=== PATIENT | male | born 1950 | race Caucasian/White ===

== ENCOUNTER 2019-05-10 14:29 | Emergency (ER) | payer OTHER, MEDICARE, SELFPAY ==
[2019-05-10 14:31] VITALS: BP 118/74; PULSE 79; RESP 16; TEMP 37.2; O2SAT 89; BMI 31.2
[2019-05-10 14:35] VITALS: O2SAT 92
--- NOTE | 2019-05-10 14:51 | RAD_ITS ---
STUDY: X-RAY CHEST REASON FOR EXAM: Male, 69 years old. TECHNIQUE: COMPARISON: None. FINDINGS: The heart is not enlarged. There is elevation of the right hemidiaphragm. Both lung rivera and costophrenic angles are clear minimal linear atelectasis in the left base. The trachea is in the midline. There is a oval opacity superimposing the transverse process of T1 could represent superimposing foreign body. RAD/Chest 1 View (Portable) IMPRESSION: Minimal atelectatic changes in the left base The study is otherwise negative. . Electronically Signed: Gustavo Marrero, at 16:28 EDT Tel , Service support ,
--- NOTE | 2019-05-10 14:52 | CT_ITS ---
STUDY: CT ABDOMEN AND PELVIS WITH CONTRAST REASON FOR EXAM: Male, 69 years old. RADIATION DOSAGE (If Supplied By Facility): CTDIvol = ( ) mGy, DLP = ( 1382.92 ) mGycm TECHNIQUE: Transaxial images were obtained from the dome of the diaphragm to the symphysis pubis without oral contrast. 100ml IV Isovue 300 was administered. Sagittal and coronal images were reconstructed. Individualized dose optimization techniques were used for this CT. COMPARISON: None. FINDINGS: The visualized lung bases are unremarkable. The visualized portions of the heart are within normal limits. There is small sliding hiatal hernia. Normal liver. Normal gallbladder and extrahepatic biliary system. Normal spleen. 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 Normal pancreas. Normal bilateral adrenal glands. The right kidney reveals tiny nonobstructing stone within the mid calyx with a small cortical cyst posterior aspect . The left kidney is unremarkable. Normal left kidney. No hydronephrosis Normal visualized stomach. Normal small intestine. The large bowel revealed several diverticula in the sigmoid and descending colon without diverticulitis. The appendix is intact. Normal abdominal aorta. Normal inferior vena cava. Normal retroperitoneum. Normal urinary bladder. Normal abdominal wall. Hypertrophic changes in the lumbar spine with what appears to be grade 5 L spondylolisthesis of L5 on S1 that is fixed by hardware CT/Abdomen/Pelvis WITH Contrast IMPRESSION: Small nonobstructive calculus midportion of the right kidney Colonic diverticulosis without the Chilaiditi Syndrome? Electronically Signed: Gustavo Marrero, at 16:24 EDT Tel , Service support ,
--- NOTE | 2019-05-10 14:53 | RAD_ITS ---
STUDY: X-RAY - LEFT FEMUR REASON FOR STUDY: Male, 69 years old. TECHNIQUE: view(s) of the femur. COMPARISON: None. FINDINGS: Normal visualized femur. Normal visualized soft tissue structure. RAD/Femur Min 2 Views IMPRESSION: Normal x-ray examination of the femur. Electronically Signed: Gustavo Marrero, at 16:29 EDT Tel , Service support ,
[2019-05-10] MEDS: morphine 8 MG/ML Syringe IV (15:10)
[2019-05-10] MEDS: Ondansetron 4 MG/2 ML Vial IV (15:10)
[2019-05-10 15:19] LABS: Absolute Lymphocyte Count 1.08 X10^3/ul (0.83-4.51); Basophil# 0.01 X10^3/uL; Basophil% 0.1 % (0-1); Hematocrit 43.6 % (40-54); Hemoglobin 14.8 g/dl (13.0-16.5); Lymphocyte # 1.08 X10^3/ul (4.0); Lymphocyte % 14.4 % (19-41); Mean Corp Hgb Conc 33.9 g/gl (32-36); Mean Corpuscular Hgb 31.4 pg (27.0-32.0); Mean Corpuscular Volume 92.6 fL (80-94); Mean Platelet Vol. 9.7 fl (6.2-12.0); Monocyte# 0.44 X10^3/uL; Monocyte% 5.9 % (0-10); Neutrophil # 5.95 X10^3/uL (2.7-7.7); Neutrophil % 79.3 % (47-70); POSITIVE COUNT NO; POSITIVE DIFFERENTIAL NO; POSITIVE MORPHOLOGY NO; Platelet Count 175 K/mm3 (150-450); RBC Distribution Width CV 13.3 % (11.6-14.6); RBC Distribution Width SD 44.9 fl (35.1-43.9); Red Blood Count 4.71 M/mm3 (4.6-6.2); White Blood Count 7.5 K/mm3 (4.4-11.0)
--- NOTE | 2019-05-10 15:20 | ED.VIS.FALL ---
History of Present Illness Chief Complaint: Fall Informant: Patient, Significant Other Occurred: Today Mechanism/Context: Slip - Fell from ladder 10 feet height Fall from Height (ft): 10 Location: Anterior right ribs, left femur and right upper quadrant Quality of Pain: Sharp, Dull, Throbbing Current Severity: Moderate Maximum Severity: Severe Worsened by: Breathing and movement and weightbearing Relieved by: Nothing Associated Symptoms: Inability to ambulate. Negative for: Parasthesias, Weakness, Loss of function, Loss of consciousness, Amnesia Narrative: And left femur pain when he bears weight. He hit his face against a armstrong. He denies head trauma. Denies loss of conscious. Is not amnestic. He denies neck pain. He denies paresthesia or anesthesia presently the time of the fall. He states it hurts to breathe but denies shortness of breath. He also complains of right flank pain. He has not urinated since incident. Incident occurred 1 hour prior to presentation. drove him to the emergency department. Tetanus was 1 year ago. Tetanus Immunization: <5 years Prior similar symptoms: No Recent Illness/Hospitalization: No Past Medical History - Allergies and Home Meds Allergies/Adverse Reactions: Allergies No Known Allergies Allergy (Verified 05/10/19 14:31) Primary Care Physician: [facility] [Primary Care Provider] - Prior records reviewed: Yes Lives: Spouse/ Significant Other Smoking Status: Never smoker Drugs: None Review of Systems General: Denies: Chills, Fever, Sweats Eyes: Denies: Visual changes - bilaterally, Diplopia ENT: Denies: Rhinorrhea, Sore throat Cardiovascular: Reports: Chest pain - Right anterior ribs over right third, fourth, fifth and sixth rib. Denies: Palpitations Respiratory: Reports: Dyspnea. Denies: Cough, Dyspnea on exertion Gastrointestinal: Reports: Abdominal pain - Right upper quadrant. Denies: Nausea, Vomiting, Diarrhea, Melena, Hematochezia Genitourinary: Denies: Dysuria, Hematuria, Frequency Musculoskeletal: Denies: Back pain, Extremity Pain Skin: Denies: Rash, Wounds Neurological: Denies: Headache, Weakness, Numbness Hematologic: Denies: Easy bruising, Easy bleeding Physical Exam Vital Signs/Narrative: Vital Signs Temp Pulse Resp BP Pulse Ox 05/10/19 14:35 92 05/10/19 14:31 99.0 F 79 16 118/74 89 Inital Vital Signs reviewed: Yes General: Well nourished, Well developed Head: Normocephalic, Trauma - Facial abrasions Eyes: Perrl, EOMI. Negative for: Pale conjunctiva, Scleral icterus, - - No subconjunctival hemorrhage noted ENT: TM's clear, No hemotympanum or drainage, No trauma. Negative for: Otorrhea, Nasal trauma, Nasal septal hematoma Neck: Nontender, Full ROM. Negative for: Spinal Tenderness, Paraspinal Tenderness Cardiovascular: Regular rate, Regular rhythm, No murmurs. Negative for: Normal S1, Normal S2 Respiratory: No distress, CTA bilaterally, Chest nontender Abdomen: Nondistended, No masses, Tender, Guarding - . Right upper and left upper quadrant, Hypoactive bowel sounds. Negative for: Soft, Nontender, Normal bowel sounds, Hyperactive bowel sounds, Hepatomegaly Rectal: Deferred Back: CVA Tenderness - Right, Paraspinal Tenderness. Negative for: Nontender, CVA Tenderness - Left, Spinal Tenderness Skin: Normal color, No rash, Trauma - Facial abrasions. Negative for: Cyanosis, Diaphoresis, Jaundice Neurological: Alert, Oriented x3, Cranial nerves II-XII grossly intact, Normal Strength, Normal Sensation, Normal DTR - There is no clonus or Babinski sign. Psychological: Normal affect, Normal Mood Diagnostic/Tx/Re-eval Chest X-Ray - ED: 1 View, Read by ED Physician, Normal, Heart, Lungs, Mediastinum, Bony Structures, - - Limited inspiratory volume. No obvious rib fracture. No obvious pneumothorax or hemothorax. CT of the abdomen was reviewed by me. There is no obvious hepatic or splenic injury. The kidneys appear normal. There is no evidence of hemo-or pneumoperitoneum. No obvious dorsal or lumbar fracture noted. Two-view x-ray of the femur interpreted by me is negative for fracture. Awaiting formal read of CT by radiologist. Impressions Abdomen/Pelvis CT 05/10/19 14:52 IMPRESSION: Small nonobstructive calculus midportion of the right kidney Colonic diverticulosis without the Chilaiditi Syndrome? Electronically Signed: Gustavo Marrero, at 16:24 EDT Tel , Service support , 05/10/19 14:51 Chest 1 View (Portable) [RAD] Stat 05/10/19 14:52 Abdomen/Pelvis WITH Contrast [CT] Stat 05/10/19 14:53 Femur Min 2 Views [RAD] Stat Laboratory Results 05/10/19 05/10/19 15:00 15:00 WBC 7.5 RBC 4.71 Hgb 14.8 Hct 43.6 MCV 92.6 MCH 31.4 MCHC 33.9 RDW 13.3 RDW Differential 44.9 H Plt Count 175 MPV 9.7 Immature Gran % (Auto) 0.300 Neut % (Auto) 79.3 H Lymph % (Auto) 14.4 L Heard % (Auto) 5.9 Eos % (Auto) 0.0 Baso % (Auto) 0.1 Absolute Neuts (auto) 6.0 Absolute Lymphs (auto) 1.08 Total Counted Not Reportable Sodium 138 Potassium 4.1 Chloride 104 Carbon Dioxide 30.0 Anion Gap 4 L BUN 18 Creatinine 1.09 Estim Creat Clear Calc 63.06 Est GFR (MDRD) Af Amer 86 Est GFR (MDRD) Non-Af 71 BUN/Creatinine Ratio 16.5 Glucose 110 H Calcium 9.2 - Medical Decision Making Because of the amount of tenderness the right upper quadrant CT of the abdomen was obtained to evaluate for hepatic and splenic injury as well as renal injury since there is flank pain. Chest x-ray was obtained to assess for upper rib fractures. Because patient complains of left femur pain distal third with weightbearing will obtain x-ray to evaluate for fracture. ED Disposition - Plan for ED Patient: Disposition: Home or Assisted Living Diagnosis: Blunt abdominal trauma, Contusion of chest wall with intact skin, Facial abrasion, Musculoskeletal thigh pain Instructions: Chest Wall Contusion, ABDOMINAL TRAUMA, Blunt (benign), CONTUSION, Lower Extremity, Abrasion Prescriptions: Oxycodone HCl/Acetaminophen [Percocet 5/325] 1 tab PO Q6H PRN PRN 5 Days #20 tab PRN Reason: Pain Prescription Printed [facility]errals[facility] [Primary Care Provider] - 1 Week if not improving
[2019-05-10 15:23] LABS: Anion Gap 4 (5-15); BUN 18 mg/dL (7-18); BUN/Creat Ratio 16.5 RATIO (10-20); Calcium,Total 9.2 mg/dL (8.5-10.1); Chloride 104 mmol/L (98-107); Creatinine, Serum 1.09 mg/dL (0.70-1.30); EST Glomerular Filtration Rate 71 mL/min (>60); Est Glom Filt Rate - Afr Amer 86 mL/min (>60); Estimated Creatinine Clearance 63.06 ml/min; Glucose 110 mg/dL (74-106); Potassium 4.1 mmol/L (3.5-5.1); Sodium Level 138 mmol/L (136-145)
[2019-05-10 15:57] VITALS: BP 123/87; PULSE 87; RESP 16; O2SAT 97
[2019-05-10] MEDS: HYDROmorphone 0.5 MG/0.5 ML SYRINGE IV (16:42)
[2019-05-10 16:43] VITALS: BP 111/73; PULSE 85; RESP 12; O2SAT 94
[2019-05-10 17:27] VITALS: BP 117/76; PULSE 88; RESP 16; O2SAT 94
== END 2019-05-10 17:28 | disposition home or self-care (01) ==
PROVIDERS: Emergency Provider Emergency Medicine
DX: S39.91XA Unspecified injury of abdomen, initial encounter (principal); S20.211A Contusion of right front wall of thorax, initial encounter; S00.81XA Abrasion of other part of head, initial encounter; M79.652 Pain in left thigh; W11.XXXA Fall on and from ladder, initial encounter; Y93.9 Activity, unspecified; Y92.9 Unspecified place or not applicable; Y99.9 Unspecified external cause status
CPT/HCPCS: 71045; 73552; 74177; 80048; 85025; 96361; 96374; 96375; 99283; Q9967; A4216; J2405

== ENCOUNTER 2022-01-05 10:53 | Emergency (ER) | payer OTHER, SELFPAY ==
[2022-01-05 10:54] VITALS: BP 132/112; PULSE 77; RESP 16; TEMP 36.8; O2SAT 96; BMI 30.2
--- NOTE | 2022-01-05 11:26 | CT_ITS ---
STUDY: CT BRAIN WITHOUT CONTRAST REASON FOR EXAM: Male, 71 years old. Fall on Tuesday, dizziness RADIATION DOSAGE (If Supplied By Facility): CTDIvol = ( 44.99 ) mGy, DLP = ( 796.11 ) mGycm TECHNIQUE: Transaxial CT imaging of the brain was performed without administration of intravenous contrast material. Individualized dose optimization techniques were used for this CT. COMPARISON: No relevant priors. FINDINGS: Normal soft tissue structures. Normal calvarium. There is mild cerebral atrophy with widening of the extra-axial spaces and ventricular dilatation. There are areas of decreased attenuation within the white matter tracts of the supratentorial brain, consistent with microvascular disease changes. There are small punctate calcifications of the basal ganglia which are seen in the aging brain as a normal variant. Normal brainstem. Normal cerebellum. There is no intracranial hemorrhage. There are no findings of an acute ischemic infarction. Normal visualized paranasal sinuses. CT/Brain/Head without Contrast IMPRESSION: 1. No acute intracranial hemorrhage or mass effect. Electronically Signed: Messi Huitron MD (Brooks) at 11:47 EST Reading Location ID and State: [facility] / [place] , Service support ,
--- NOTE | 2022-01-05 11:26 | RAD_ITS ---
STUDY: X-RAY - RIGHT TIBIA AND FIBULA REASON FOR EXAM: Male, 71 years old. Fall on Tuesday, lower leg pain TECHNIQUE: 2 view(s) of the tibia and fibula were obtained. COMPARISON: None. FINDINGS: Normal visualized tibia. Normal visualized fibula. The soft tissue structures are unremarkable. RAD/Tibia & Fibula 2 Views IMPRESSION: Normal x-ray examination of the tibia and fibula. Electronically Signed: Messi Huitron MD (Brooks) at 11:48 EST ,
--- NOTE | 2022-01-05 11:27 | EDS_ITS ---
HPI History of Present Illness Chief Complaint: Fall Informant: patient and spouse/S.O. Narrative Narrative: 71-year-old male states that he was walking his dog in the dark on Tuesday evening. He slipped and fell on the ice striking the back of his head on the ground. No loss of consciousness. He notes slight discomfort to the proximal lateral right leg. On Tuesday morning he went to roll over to turn off the alarm and states that his head got very heavy. He states that he felt like his head was spinning really fast. But it is not vertigo because he has had vertigo in the past and this did not seem like it. Few minutes went by and he rolled over to his left side again with the same symptoms. This morning he felt a little lightheaded and some discomfort in his occiput but did not have the head heaviness that he had on Tuesday. He called his doctor who recommended he come to emergency [facility] Medical History Acute Crohn's disease Cholecystectomy planned Allergy/AdvReac Type Severity Reaction Status Date / Time No Known Allergies Allergy Verified 01/05/22 10:56 Surgical History History of back surgery Social History (Updated 01/05/22 @ 11:[address] Jose Alberto Bojorquez DO) service: Yes current gender identity: male Smoking Status: Never smoker ROS ROS ED Constitutional Constitutional ED: Denies chills or weight loss Eyes Eyes: Denies change in vision or diplopia ENT ENT ED: Denies ear pain, rhinorrhea or sore throat Cardiovascular Cardiovascular: Denies chest pain, orthopnea, palpitations or racing heartbeat Respiratory/Chest Respiratory/Chest: Denies cough, dyspnea or orthopnea Gastrointestinal Gastrointestinal: Denies abdominal pain, diarrhea, nausea or vomiting Genitourinary Genitourinary ED: Denies dysuria, hematuria or urinary frequency Musculoskeletal Musculoskeletal: Reports other Details: See HPI ; Denies arthralgias or myalgias Integumentary Denies abscess or rash Neurologic Neurologic: Reports headache(s) and other Details: See HPI ; Denies weakness Psychiatric Psychiatric: Denies anxiety, depression, suicidal ideation or suicidal thoughts Endocrine Endocrinology: Denies polydipsia, polyphagia or polyuria Allergic/Immunologic Allergic/Immunologic ED: Denies mouth swelling, tongue swelling or urticaria EXAM Physical Exam Const Vital Signs: 01/05/22 10:54 01/05/22 11:07 Temperature 98.2 F Temperature Source Temporal Pulse Rate 77 Respiratory Rate 16 Respiratory Effort Normal Respiratory Depth Normal Respiratory Pattern Normal Blood Pressure 132/112 H Blood Pressure Mean 118 Pulse Ox 96 Oxygen Delivery Method Room Air Room Air Positive well nourished and well developed General Appearance ED: well developed HEENT Reports normocephalic, head/scalp atraumatic, TM's clear and moist mucous membranes Negative for trauma Tympanic Membrane ED: Yes TM's clear Eyes PERRL and EOMs intact bilaterally Eyes Narrative: Negative raccoon eyes no levi sign Neck no lymphadenopathy, supple and no JVD Resp normal respiratory effort and clear to auscultation bilaterally Cardio regular rate, regular rhythm and no murmurs GI normal to inspection, nondistended, normoactive bowel sounds and non-tender Palpation: soft Back/Spine no CVA tenderness and normal ROM Extremity Extremity Narrative: Tender palpation of the fibular head General Extremety ED: Negative for edema General Extremity: Negative for edema Neuro oriented x3 and CN's II-XII intact bilaterally Sensorium / Orientation: alert Motor Exam: strength 5/5 throughout Psych mental status grossly normal Mood & Affect: Negative for depressed or tearful Skin no rashes or lesions noted and no wounds MDM MDM MDM Narrative Medical decision making narrative: CT the brain shows no intracranial hemorrhage or fracture. My clinical impression of the tibia and fibula is no acute fracture. Patient will be discharged home with supportive care return if worsening or concerns Radiography Diagnostic Testing: Clinical Impression(s) from Imaging Studies Brain CT 01/05/22 11:26 IMPRESSION: 1. No acute intracranial hemorrhage or mass effect. Electronically Signed: Messi Huitron MD (Brooks) at 11:47 EST , Tibia/Fibula X-Ray 01/05/22 11:26 IMPRESSION: Normal x-ray examination of the tibia and fibula. Electronically Signed: Messi Huitron MD (Brooks) at 11:48 EST Reading Location ID and State: [facility] / [place] , Service support , Discharge Plan Triage Chief Complaint: Fall ED Provider: Jose Alberto Bojorquez Dx/Rx/DC Orders Clinical Impression: Contusion of left leg, Head injury Instructions: ED Head Injury (Adult) [facility] Care Provider[facility]errals[facility] [[facility] - 1 Week if not improving Disposition Disposition: Home, Self Care
--- NOTE | 2022-01-06 13:00 | CM.ED ---
TASHI WHYTE ED follow-up: Date of ER visit: 01/05/2022 Presenting ER complaint: Fall RN ISABELL placed call to patient's telephone number listed on demographics with no answer. Voice message with call back information left requesting return call if any questions, needs or concerns. TASHI Clarke CM
== END 2022-01-05 23:59 | disposition home or self-care (01) ==
PROVIDERS: Emergency Provider Emergency Medicine; Visit Provider Emergency Medicine
DX: S09.90XA Unspecified injury of head, initial encounter (principal); S80.12XA Contusion of left lower leg, initial encounter; W00.9XXA Unspecified fall due to ice and snow, initial encounter; Y93.K1 Activity, walking an animal
CPT/HCPCS: 70450; 73590; 99282

== ENCOUNTER 2022-01-11 15:14 | Outpatient (CLI) | payer OTHER, SELFPAY ==
--- NOTE | 2022-01-11 | COLBX_PTH ---
PATIENT: PIETRO STEWART LOC: [facility] U#:[id number] AGE/SX: 71/M ROOM: RE01/11/[address]: Dr. Eduardo Singh MD : 1950 BED: DIS: 01/11/2022 SPEC #: [id number] RECD: 01/11/22 15:05 STATUS: JIMENEZ FELISHA #: [id number] FATOU: 01/11/22 00:[address]: Eduardo Singh DEPT: SURGICAL PATHOLOGY RECD BY: Wander Baer ENTERED: 01/12/22 10:48 SP TYPE: COLON BX OTHR DR: [facility] Tissues: A - Right colon B - Left colon Procedures: Surgery Specimen Level IV HEADER OPERATION: Colonoscopy with biopsy PRE-OP DIAGNOSIS: History of Crohn?s / diarrhea TISSUE SUBMITTED: A ? Right colon biopsy, rule out microscopic colitis/Crohn?s, B ? Left colon biopsy, rule out microscopic colitis/Crohn?s MICROSCOPIC DIAGNOSIS A. Right colon, biopsy: No pathologic change. No evidence of colitis. B. Left colon, biopsy: Melanosis coli. AM:dm 01/13/2022 MICROSCOPIC DESCRIPTION Slides are reviewed. GROSS DESCRIPTION A - Received in fixative is one container labeled with the patient's name and designated right colon. The specimen consists of multiple irregular fragments of light palomo soft tissue that in aggregate measure 1 x 0.5 x 0.1 cm. The specimen is totally submitted in one cassette. B - Received in fixative is one container labeled with the patient's name and designated left colon. The specimen consists of multiple irregular fragments of light palomo soft tissue that in aggregate measure 1 x 0.5 x 0.1 cm. The specimen is totally submitted in one cassette. / SJ:dm 01/12/2022 TC:5 CPT: 84308 x2
== END 2022-01-11 23:59 | disposition home or self-care (01) ==
LOC: LABSPEC 15:17
PROVIDERS: Visit Provider Internal Medicine Gastroenterology
DX: R19.7 Diarrhea, unspecified (principal); Z87.19 Personal history of other diseases of the digestive system; K63.89 Other specified diseases of intestine
CPT/HCPCS: 88305

== ENCOUNTER 2024-01-31 12:47 | Observation (INO) | payer OTHER, SELFPAY ==
[2024-01-31] VITALS (25 sets, daily range): BP systolic 112–139; BP diastolic 55–89; PULSE 61–75; RESP 10–18; TEMP 36.2–36.4; O2SAT 88–99; BMI 28.5; BMI 28.3
--- NOTE | 2024-01-31 13:34 | CT_ITS ---
STUDY: CT BRAIN WITHOUT CONTRAST REASON FOR EXAM: Male, 73 years old. Dizziness RADIATION DOSAGE (If Supplied By Facility): CTDIvol = ( 47.06 ) mGy, DLP = ( 1745.36 ) mGycm TECHNIQUE: Transaxial CT imaging of the brain was performed without administration of intravenous contrast material. Individualized dose optimization techniques were used for this CT. COMPARISON: Comparison is made with prior study dated January 05, 2022. FINDINGS: Normal soft tissue structures. Normal calvarium. There is mild cerebral atrophy with widening of the extra-axial spaces and ventricular dilatation. Normal white matter tracts of the cerebral hemispheres. There are small punctate calcifications of the basal ganglia which are seen in the aging brain as a normal variant. Normal brainstem. Normal cerebellum. There is no intracranial hemorrhage. There are no findings of an acute ischemic infarction. Atherosclerotic calcification of the cavernous portions of the internal carotid arteries bilaterally. Mucosal thickening at the base of the left maxillary sinus. CT/Brain/Head without Contrast IMPRESSION: Chronic involutional changes of the brain. Electronically Signed: Jamal Lyn MD at 14:28 EDT ,
--- NOTE | 2024-01-31 13:34 | EKG12_ITS ---
Test Reason : SYNCOPE Blood Pressure : / mmHG Vent. Rate : 063 BPM Atrial Rate : 063 BPM P-R Int : 188 ms QRS Dur : 092 ms QT Int : 418 ms P-R-T Axes : 031 005 047 degrees QTc Int : 427 ms Normal sinus rhythm Normal Confirmed by Toñito Kang ([id number]), editor in chief FLOWER MALIK ([id number]) on 02/02/2024 10:58:06 AM Referred By: [facility] Confirmed By:Toñito Kang
--- NOTE | 2024-01-31 13:35 | EX.ED.DYSGE1 ---
HPI History of Present Illness Chief Complaint: Dizziness Detail of Chief Complaint: Dizziness Informant: patient Narrative Narrative: Patient presents with dizziness and lightheadedness that started 4 days ago. Symptoms worse with being up and moving. At rest really does not notice it much. He does have history of vertigo but this feels different. There is no spinning sensation. Just feels a little off balance. [facility] some [facility] and they were to evaluate that. Patient apparently had a CT scan that showed some sort of abnormality on his liver recently and then had an ultrasound that showed a shadow of some sort on the liver but they are not sure what it is. Patient denies weight loss. Has had no fever. He did have a cold that resolved about a week ago. He denies chest pain or shortness of breath. He denies vomiting or diarrhea. He denies urinary symptoms. [facility] Medical History Acute Crohn's disease Cholecystectomy planned Allergy/AdvReac Type Severity Reaction Status Date / Time No Known Allergies Allergy Verified 01/31/24 12:50 Surgical History History of back surgery Social History (Updated 01/05/22 @ 11:[address] Jose Alberto Bojorquez DO) Smoking Status: Never smoker ROS ROS ED Review of Systems ROS Unobtainable: other Constitutional Constitutional ED: Reports lethargy; Denies chills, fever(s), sweats or weight loss Eyes Eyes: Denies blurry vision, change in vision or diplopia ENT ENT ED: Denies rhinorrhea or sore throat Cardiovascular Cardiovascular: Denies chest pain, orthopnea or racing heartbeat Respiratory/Chest Respiratory/Chest: Denies cough, dyspnea, dyspnea on exertion, orthopnea or sputum Gastrointestinal Gastrointestinal: Denies abdominal pain, diarrhea, nausea or vomiting Genitourinary Genitourinary ED: Denies dysuria, hematuria or urinary frequency Musculoskeletal Musculoskeletal: Denies arthralgias, back pain, myalgias or neck pain Integumentary Denies abscess, Abrasions or rash Neurologic Neurologic: Reports other Details: Dizziness ; Denies headache(s) or weakness Psychiatric Psychiatric: Denies anxiety, depression or suicidal thoughts Endocrine Endocrinology: Denies polydipsia, polyphagia or polyuria Hematologic/Lymphatic Hematologic/Lymphatic: Denies easy bleeding, easy bruising or lymphadenopathy Allergic/Immunologic Allergic/Immunologic ED: Denies mouth swelling, tongue swelling or urticaria EXAM Physical Exam Const Vital Signs: 01/31/24 12:48 01/31/24 12:48 01/31/24 13:18 Temperature 97.1 F L 97.1 F L Temperature Source Temporal Temporal Pulse Rate 75 75 Pulse Rate [Lying] Pulse Rate [Standing (for 1 minute prior to obtaining)] Respiratory Rate 16 16 Respiratory Effort Normal Respiratory Pattern Normal Blood Pressure 139/81 H 139/81 H Blood Pressure [Lying] Blood Pressure [Sitting (for 1 minute prior to obtaining)] Blood Pressure [Standing (for 1 minute prior to obtaining)] Blood Pressure Mean 100 100 Blood Pressure Mean [Lying] Blood Pressure Mean [Sitting (for 1 minute prior to obtaining)] Blood Pressure Mean [Standing (for 1 minute prior to obtaining)] Pulse Ox 96 95 Oxygen Delivery Method Room Air Room Air 01/31/24 13:20 01/31/24 14:59 Temperature 97.6 F L Temperature Source Oral Pulse Rate 64 Pulse Rate [Lying] 67 Pulse Rate [Standing (for 1 minute prior to obtaining)] 72 Respiratory Rate 11 L Respiratory Effort Respiratory Pattern Blood Pressure 123/75 H Blood Pressure [Lying] 122/89 H Blood Pressure [Sitting (for 1 minute prior to obtaining)] 119/69 Blood Pressure [Standing (for 1 minute prior to obtaining)] 136/80 H Blood Pressure Mean 91 Blood Pressure Mean [Lying] 100 Blood Pressure Mean [Sitting (for 1 minute prior to obtaining)] 85 Blood Pressure Mean [Standing (for 1 minute prior to obtaining)] 98 Pulse Ox 91 Oxygen Delivery Method Room Air Positive well nourished and well developed General Appearance ED: well developed and NAD HEENT Reports TM's clear and moist mucous membranes normocephalic and atraumatic; Negative for trauma or tenderness Tympanic Membrane ED: Yes TM's clear Eyes PERRL and EOMs intact bilaterally General Eye ED: Negative for pale conjunctiva or scleral icterus Neck no lymphadenopathy, supple and no JVD General: Negative for tenderness Chest Wall inspection of chest normal and palpation of chest normal Chest: Negative for tenderness Resp normal respiratory effort and clear to auscultation bilaterally Effort and Inspection: Negative for respiratory distress or pain with movement Auscultation: Negative for rhonchi, wheezes or diminished lung sounds Cardio regular rate, regular rhythm, S1 normal heart sound, S2 normal heart sound and no murmurs Peripheral Pulses: pulses 2+ throughout GI normal to inspection, nondistended, normoactive bowel sounds, soft to palpation, non-tender, non-distended and no masses Back/Spine no CVA tenderness and no thoracic nor lumbar tenderness Extremity normal to inspection General Extremety ED: Negative for edema General Extremity: Negative for edema Neuro oriented x3, CN's II-XII intact bilaterally, no sensory deficits noted and gait normal Neuro Narrative: Finger-nose and heel agudelo testing within normal limits, negative Romberg, negative for drift, fundi benign Sensorium / Orientation: awake, alert, oriented to person, oriented to place and oriented to time Motor Exam: strength 5/5 throughout and strength abnormal Psych mental status grossly normal Skin no rashes or lesions noted and no wounds MDM MDM MDM Narrative Medical decision making narrative: Patient describes lightheadedness and feeling off balance. Having a hard time walking at times and driving. Symptoms ongoing for about 4 days. This is different than his vertigo that he is experienced in the past. Denies headache. Denies recent illness. IV line established. EKG obtained arrival shows sinus rhythm with ventricular rate of 63 bpm with no acute ST segment changes. Orthostatic vital signs performed were negative. CBC with differential regular 4.4 with hemoglobin 14 and platelet count of 236. Chemistries unremarkable. LFTs were slightly elevated with an AST of 45 and ALT of 151 and alk phos of 219. These are similar to what patient's lab results were recently that they brought with them. Apparently he has had elevated LFTs for months that he is currently [facility] and has had recent CT scan and ultrasound of the upper quadrant. I did obtain a CT scan of the brain without contrast that showed chronic involutional changes. At this point etiology of symptoms unclear. I am concerned about possibly a central cause such as cerebellar stroke. He really does not have nystagmus on exam. And Hallpike maneuver did not elicit any type of vertigo symptoms or nystagmus. Case discussed with hospitalist to evaluate patient for admission. Lab Data Attestation: I reviewed the patient's lab results. Labs: Laboratory Results - last 24 hr 01/31/24 13:28 WBC 4.4 RBC 4.53 L Hgb 14.1 Hct 43.1 MCV 95.1 H MCH 31.1 MCHC 32.7 RDW Std Deviation 45.6 H RDW Coeff of Dee 13.0 Plt Count 236 MPV 9.4 Immature Gran % (Auto) 0.900 Neut % (Auto) 44.5 L Lymph % (Auto) 45.7 H [place] % (Auto) 8.0 Eos % (Auto) 0.0 Baso % (Auto) 0.9 Absolute Neuts (auto) 1.9 L Absolute Lymphs (auto) 1.99 Nucleated RBC % 0 Sodium 140 Potassium 4.0 Chloride 104 Carbon Dioxide 30.0 Anion Gap 6 BUN 14 Creatinine 0.91 Estim Creat Clear Calc 78.00 Est GFR (MDRD) Af Amer 105 Est GFR (MDRD) Non-Af 87 BUN/Creatinine Ratio 15.5 Glucose 118 H Calcium 9.1 Total Bilirubin 0.50 AST 45 H ALT 151 H Alkaline Phosphatase 219 H Troponin I High Sens 4 Total Protein 7.7 Albumin 3.3 Globulin 4.4 H Albumin/Globulin Ratio 0.8 L Radiography Diagnostic Testing: Clinical Impression(s) from Imaging Studies Brain CT 01/31/24 13:34 IMPRESSION: Chronic involutional changes of the brain. Electronically Signed: Jamal Lyn MD at 14:28 EDT , Discharge Plan Triage Chief Complaint: Dizziness ED Provider: Shelly Katz Dx/Rx/DC Orders Clinical Impression: Hx of Crohn's disease, Dizziness, Elevated liver enzymes [facility] [Primary Care Provider] - Disposition Disposition: Acute Care Hospital [facility]
[2024-01-31 13:56] LABS: Absolute Lymphocyte Count 1.99 X10^3/uL (0.83-4.51); Absolute Neutrophil Count 1.9 X10^3/uL (2.0-7.7); Basophil# 0.04 X10^3/uL; Basophil% 0.9 % (0-1); Hematocrit 43.1 % (40-54); Hemoglobin 14.1 g/dL (13.0-16.5); Lymphocyte # 1.99 X10^3/ul (0.83-4.51); Lymphocyte % 45.7 % (19-41); Mean Corp Hgb Conc 32.7 g/dL (32-36); Mean Corpuscular Hgb 31.1 pg (27.0-32.0); Mean Corpuscular Volume 95.1 fL (80-94); Mean Platelet Vol. 9.4 fl (6.2-12.0); Monocyte# 0.35 X10^3/uL; NRBC Flagged by Analyzer 0 % (0-5); Neutrophil # 1.93 X10^3/uL (2.7-7.7); Neutrophil % 44.5 % (47-70); Platelet Count 236 K/mm3 (150-450); RBC Distribution Width SD 45.6 fl (35.1-43.9); Red Blood Count 4.53 M/mm3 (4.6-6.2); White Blood Count 4.4 K/mm3 (4.4-11.0)
[2024-01-31] MEDS: 0.9% Normal Saline (1000mL) 1,000 ML 150 ML IV (13:58)
[2024-01-31 14:13] LABS: ALB/GLOB Ratio 0.8 RATIO (0.9-2.4); AST(SGOT) 45 U/L (15-37); Alanine Aminotransfer ALT/SGPT 151 U/L (16-61); Albumin, Serum 3.3 g/dL (3.2-5.0); Alkaline Phosphatase 219 U/L (45-117); Anion Gap 6 (5-15); BUN 14 mg/dL (7-18); BUN/Creat Ratio 15.5 RATIO (10-20); Calcium,Total 9.1 mg/dL (8.5-10.1); Chloride 104 mmol/L (98-107); Creatinine, Serum 0.91 mg/dL (0.70-1.30); EST Glomerular Filtration Rate 87 mL/min (>60); Est Glom Filt Rate - Afr Amer 105 mL/min (>60); Globulin 4.4 g/dL (2.2-4.2); Glucose 118 mg/dL (74-106); Protein, Total 7.7 g/dL (6.4-8.2); Sodium Level 140 mmol/L (136-145); Troponin-I HS 4 pg/mL (3.0-78.0)
--- NOTE | 2024-01-31 15:26 | HP.PCM.HOS_ITS ---
HPI - General General Date of Admission: 01/31/24 Date of Service: 01/31/24 Chief Complaint: Persistent dizziness HPI Narrative PIETRO STEWART, is a 73 M who presented to [facility] ED on 01/31/2024 with persistent dizziness. Patient seen at bedside in the ED. He was sitting up comfortably in bed, conversing normally, no acute distress. [facility] has a history of vertigo, but his current episode of dizziness is significantly different than past episodes of dizziness. States he will very occasionally have short episodes of dizziness that last for a few minutes and resolve on their own. He was prescribed meclizine at one point but said this caused him to feel lightheaded so he has not taken that for a long time. States he developed dizziness about 4 days ago while at rest. Symptoms felt somewhat similar to his vertigo episodes but the dizziness would not go away. He lives at home with his and has 2 dogs at home as well. States his dizziness is worse with walking and he has been getting help from his dogs and using the mckenzie to help him get around the house. He reports intermittent blurry vision as well which feels slightly improved now compared to the last few days. He initially thought he might have lightheadedness and dizziness secondary to going from sitting to standing but notes that the dizziness has not seemed to follow any particular pattern. Patient has minimal past medical history and has had no recent medication changes. He denies any chest pain, shortness of breath, fevers or chills recently. Denies any recent illnesses. Denies any abdominal pain or nausea/vomiting. Denies any changes in bowel movements. Denies any dysuria or history of UTIs. No other acute concerns at this time. [facility] Medical History Acute Crohn's disease Cholecystectomy planned Home Medications bupropion HCl 150 mg 24 hr tablet, extended release 150 mg PO BID 01/31/24 [History Last Taken 01/31/24] loperamide 2 mg tablet (Imodium A-D) 2 mg PO BID PRN diarrhea 01/31/24 [History Last Taken 01/31/24] mesalamine 0.375 gram capsule,extended release 24 hr (Apriso) 1.5 g PO BID colitis 01/31/24 [History Last Taken 01/31/24] trazodone 50 mg tablet 50 mg PO QHS insomnia 01/31/24 [History Last Taken 01/30/24] Allergy/AdvReac Type Severity Reaction Status Date / Time No Known Allergies Allergy Verified 01/31/24 12:50 Surgical History History of back surgery Social History Smoking Status: Never smoker ROS Constitutional Constitutional: Denies chills, fatigue, fever(s) or weakness Eyes Eyes: Reports blurry vision; Denies double vision, eye pain or loss of vision ENT HEENT: Denies abnormal hearing, dysphagia, headache(s), nasal congestion, nasal discharge, sinus pressure or sore throat Cardiovascular Cardiovascular: Reports lightheadedness; Denies chest pain, dyspnea on exertion, palpitations or syncope Respiratory/Chest Respiratory/Chest: Denies cough, shortness of breath at rest or wheezing Gastrointestinal Gastrointestinal: Denies abdominal pain, constipation, diarrhea, nausea or vomiting Genitourinary Genitourinary: Denies dysuria Musculoskeletal Musculoskeletal: Denies arthralgias, back pain or myalgias Neurologic Neurologic: Reports abnormal gait and dizziness; Denies abnormal speech, confusion, focal weakness, headache(s), numbness, paresthesias, syncope, tingling or tremor(s) Vital Signs Vital Signs Vital Signs: 01/31/24 12:48 01/31/24 12:48 01/31/24 13:18 Temperature 97.1 F L 97.1 F L Temperature Source Temporal Temporal Pulse Rate 75 75 Pulse Rate [Lying] Pulse Rate [Standing (for 1 minute prior to obtaining)] Respiratory Rate 16 16 Respiratory Effort Normal Respiratory Pattern Normal Blood Pressure 139/81 H 139/81 H Blood Pressure [Lying] Blood Pressure [Sitting (for 1 minute prior to obtaining)] Blood Pressure [Standing (for 1 minute prior to obtaining)] Blood Pressure Mean 100 100 Blood Pressure Mean [Lying] Blood Pressure Mean [Sitting (for 1 minute prior to obtaining)] Blood Pressure Mean [Standing (for 1 minute prior to obtaining)] Pulse Ox 96 95 Oxygen Delivery Method Room Air Room Air 01/31/24 13:20 01/31/24 14:59 Temperature 97.6 F L Temperature Source Oral Pulse Rate 64 Pulse Rate [Lying] 67 Pulse Rate [Standing (for 1 minute prior to obtaining)] 72 Respiratory Rate 11 L Respiratory Effort Respiratory Pattern Blood Pressure 123/75 H Blood Pressure [Lying] 122/89 H Blood Pressure [Sitting (for 1 minute prior to obtaining)] 119/69 Blood Pressure [Standing (for 1 minute prior to obtaining)] 136/80 H Blood Pressure Mean 91 Blood Pressure Mean [Lying] 100 Blood Pressure Mean [Sitting (for 1 minute prior to obtaining)] 85 Blood Pressure Mean [Standing (for 1 minute prior to obtaining)] 98 Pulse Ox 91 Oxygen Delivery Method Room Air Weight Weight: 87.543 kg Body Mass Index (BMI) 28.5 Physical Exam Const alert, oriented x3 and no apparent distress Constitutional Narrative: Pleasant elderly male, appears younger than stated age, sitting comfortably in bed, conversing normally, no acute distress. General Appearance: cooperative and comfortable HEENT normocephalic, head/scalp atraumatic, hearing grossly normal bilaterally, nasal mucous membranes and turbinates normal and moist oral mucous membranes Eyes PERRL, EOMs intact bilaterally and conjunctivae normal Neck full ROM Chest inspection of chest normal Resp normal respiratory effort, normal air movement, no use of accessory muscles and clear to auscultation bilaterally Cardio regular rate, regular rhythm, no murmurs and peripheral pulses 2+ throughout GI normal to inspection, nondistended, normoactive bowel sounds, soft to palpation, non-tender and non-distended Back/Spine normal ROM Extremity normal to inspection, full ROM and no pedal edema Skin no rashes or lesions noted Neuro moves all extremities and no focal motor deficits Neuro Narrative: No overt neurologic abnormalities lying in bed. Did not attempt to ambulate the patient. Coordination / Balance: [id number] test normal and [id number] test normal Speech: speech normal Motor Exam: strength 5/5 throughout Psych mental status grossly normal Results Lab / Micro Data 01/31/24 13:28 01/31/24 13:28 Labs: Laboratory Results - last 24 hr 01/31/24 13:28: WBC 4.4, RBC 4.53 L, Hgb 14.1, Hct 43.1, MCV 95.1 H, MCH 31.1, MCHC 32.7, RDW Std Deviation 45.6 H, RDW Coeff of Dee 13.0, Plt Count 236, MPV 9.4, Immature Gran % (Auto) 0.900, Neut % (Auto) 44.5 L, Lymph % (Auto) 45.7 H, [place] % (Auto) 8.0, Eos % (Auto) 0.0, Baso % (Auto) 0.9, Absolute Neuts (auto) 1.9 L, Absolute Lymphs (auto) 1.99, Nucleated RBC % 0, Sodium 140, Potassium 4.0, Chloride 104, Carbon Dioxide 30.0, Anion Gap 6, BUN 14, Creatinine 0.91, Estim Creat Clear Calc 78.00, Est GFR (MDRD) Af Amer 105, Est GFR (MDRD) Non-Af 87, BUN/Creatinine Ratio 15.5, Glucose 118 H, Calcium 9.1, Total Bilirubin 0.50, AST 45 H, ALT 151 H, Alkaline Phosphatase 219 H, Troponin I High Sens 4, Total Protein 7.7, Albumin 3.3, Globulin 4.4 H, Albumin/Globulin Ratio 0.8 L Imaging Radiology Impression Brain CT 01/31/24 13:34 IMPRESSION: Chronic involutional changes of the brain. Electronically Signed: Jamal Lyn MD at 14:28 EDT , Assessment & Plan Assessment/Plan (1) Elevated liver enzymes: (2) Dizziness: PLAN: Plan Patient is a 73-year-old male who presented to [facility] ED on 01/31/2024 with persistent dizziness. 1. Persistent dizziness, CVA rule out ? Unclear etiology, could be secondary to known history of vertigo but given persistent symptoms cannot rule out a stroke, particularly a posterior circulation stroke. ? Hemodynamically stable on room air in ED. EKG showed normal sinus rhythm, no ST changes. CT head without contrast showed only chronic involutional changes of the brain, no acute findings. Lab workup fairly benign. ? Admit under observation status to PCU. Teleneurology consulted. Orders placed per acute ischemic CVA order set. MRI brain without contrast, echo, lipid panel, A1c ordered. PT/OT/PATTERN VAULT CLERK/case management consulted. Will hold on prescribing aspirin or statin for now. 2. Elevated LFTs with reported liver abnormality ? LFTs on admit with AST 45, ALT 151, alk phos 219, T. bili normal. No previous labs available in our system for comparison. Apparently had a liver abnormality seen on imaging at the [facility] recently, unclear on any further details regarding this. Patient notably denies any right upper quadrant pain or discomfort at any point in the past. ? Will order right upper quadrant ultrasound for further evaluation. Trend LFTs. Chronic medical conditions: ? Depression/insomnia: Continue home bupropion and trazodone. ? History of Crohn's disease: Stable. Continue home mesalamine if available. Continue home Imodium as needed. DVT prophylaxis: SCDs CODE STATUS: Full code, verified Expected disposition: Home, 1 to 2 days Total clinical time spent by myself addressing the patient's medical issues, reviewing all the data, and collaborating with patient's care team: 55 minutes. Charges/Coding Visit Charges Inpatient E&M: 72338 Init Hosp L2
--- NOTE | 2024-01-31 15:33 | MRI_ITS ---
STUDY: MRI BRAIN WITHOUT CONTRAST REASON FOR EXAM: Male, 73 years old. CVA rule out TECHNIQUE: Standardized multiplanar fat and water weighted pulse sequences were obtained. COMPARISON: Ct brain jan 31 2024. FINDINGS: Prominant size of the ventricles and extra-axial spaces for the patient''s age. There are multiple white matter hyperintensities, distributed throughout the deep white matter tracts of the cerebral hemispheres, consistent with moderate chronic white matter ischemic changes. Normal bilateral basal ganglia. Normal thalami. There is no extra-axial fluid accumulation. Normal flow voids within the major intracranial circulation suggesting patency by spin echo criteria. Normal sella turcica, pituitary gland, infundibular stalk, optic chiasm and hypothalamus. Normal tectal plate and pineal gland. Normal midbrain, morena and medulla. Normal cerebellum. Normal basal cisterns. Normal bilateral temporal bones. Normal bilateral internal auditory canals. No demonstrated orbital abnormality, within the constraints of a routine brain study. There is mucoperiosteal inflammatory disease of the paranasal sinuses consistent with mild chronic sinusitis. Normal calvarium and skull base. Normal visualized soft tissue structures. Normal visualized upper cervical spine. MRI/Brain without Contrast IMPRESSION: Involutional changes of the brain, as described above. Electronically Signed: Olman Zayas MD at 20:49 EDT ,
--- NOTE | 2024-01-31 15:33 | ECHOD_ITS ---
Reason For Study: TIA/CVA Procedure This was a 2D Doppler, Color Flow transthoracic echocardiogram. Exam performed portable in patient room. Left Ventricle Normal LV size. Left ventricular systolic function is normal. The left ventricular ejection fraction is 60 %. Stage 1 diastolic dysfunction. No regional wall motion abnormalities noted. Right Ventricle Normal RV size. Normal systolic function. Atria Normal left atrium. Normal right atrium. Patent foramen ovale. Mitral Valve Normal mitral valve. Tricuspid Valve Normal tricuspid valve. Mild (1+) tricuspid valve insufficiency. Pulmonary artery systolic pressure is 25 mmHg. Aortic Valve Trisinus/trileaflet aortic valve. Pulmonic Valve Normal pulmonic valve. Mild (1+) pulmonic valve insufficiency. Great Vessels Normal aortic root. The pulmonary artery is normal size. Inferior vena cava collapse with sniff. Pericardium/Pleural No pericardial effusion. Medication Performed a rapid injection of agitated mix of 9 cc saline and 1cc air to assess for atrial septal defect. MMode/2D Measurements & Calculations LVIDd: 4.8 cm IVSd: 1.1 cm Ao root diam: 3.7 cm LVIDs: 3.5 cm LVPWd: 0.87 cm LA dimension: 4.3 cm FS: 28.1 % LAV(MOD-bp): 48.5 ml LVAd ap4: 26.2 cm2 SV(MOD-sp4): 45.1 ml LAV(MOD-bp) Indexed: 23.9 ml/m2 LVLd ap4: 7.4 cm LAV(MOD-sp2): 49.4 ml EDV(MOD-sp4): 77.2 ml LAV(MOD-sp4): 43.1 ml EDV(sp4-el): 79.0 ml LVAs ap4: 14.7 cm2 LVLs ap4: 5.7 cm ESV(MOD-sp4): 32.1 ml ESV(sp4-el): 32.3 ml EF(MOD-sp4): 58.4 % EF(sp4-el): 59.1 % SV(sp4-el): 46.7 ml LA A4 area: 17.2 cm2 RA A4 area: 16.8 cm2 TAPSE: 1.7 cm Time Measurements MV dec time: 0.25 sec Doppler Measurements & Calculations MV E max azael: 57.5 cm/sec Lat Peak E' Azael: 10.9 cm/sec Med Peak E' Azael: 9.8 cm/sec MV A max azael: 65.3 cm/sec E/E' lat: 5.3 E/E' med: 5.9 MV E/A: 0.88 MV V2 max: 75.9 cm/sec MV P1/2t max azael: 59.9 cm/sec Ao V2 max: 109.8 cm/sec MV max P.3 mmHg MV P1/2t: 79.9 msec Ao max P.8 mmHg MV V2 mean: 37.6 cm/sec Ao V2 mean: 72.7 cm/sec MV mean P.68 mmHg MV dec slope: 219.7 cm/sec2 Ao mean P.4 mmHg MV V2 VTI: 21.2 cm MVA(P1/2t): 2.8 cm2 Ao V2 VTI: 20.8 cm AV (velocity ratio): 0.71 LV V1 max: 76.7 cm/sec PA V2 max: 147.5 cm/sec TR max azael: 236.9 cm/sec LV V1 max P.4 mmHg PA V2 mean: 81.0 cm/sec TR max P.5 mmHg LV V1 mean P.2 mmHg LV V1 mean: 51.1 cm/sec LV V1 VTI: 14.7 cm ECHO/Echo Complete Interpretation Summary Normal LV size. Left ventricular systolic function is normal. The left ventricular ejection fraction is 60 %. Patent foramen ovale. Stage 1 diastolic dysfunction. Pulmonary artery systolic pressure is 25 mmHg. Ordering Physician: Stepan Darden Performed By: Shan Vega RCS
--- NOTE | 2024-01-31 15:36 | NURSING ---
PCU OBS MOSTELLER DIZINESS, ELEVATED LIVER ENZYMES, HX OF CROHN'S DISEASE
--- NOTE | 2024-01-31 16:18 | NURSING ---
CALLED [facility], TALKED TO [facility]. DO WHAT IS IN THE BEST INTEREST OF THE PATIENT. SOMEONE WILL CONTACT US LATER ABOUT PATIENT. FAXING CHART TO THEM
--- NOTE | 2024-01-31 16:20 | NURSING ---
FAXED CHART TO [facility]
[2024-01-31 16:24] LABS: Hemoglobin A1c 6.2 % (3.8-5.6)
--- NOTE | 2024-01-31 17:26 | US_ITS ---
EXAM: US abdomen, limited, right upper quadrant. HISTORY: RUQ ultrasound, elevated LFTs TECHNIQUE: US Abdomen RUQ (limited) COMPARISON: Previous ultrasound of 01/18/2005. LIMITATIONS: Bowel gas. Left hepatic lobe partially obscured. LIVER Size: Normal. Right hepatic lobe measures 14.2 cm in length. Masses: None. Contour: Normal. Echotexture: Normal. Bile ducts: Normal. Portal veins: Normal. Hepatopedal flow. Hepatic veins are also patent. GALLBLADDER: Absent. EXTRAHEPATIC BILE DUCTS: Normal. Common bile that measures 5 mm in diameter. RIGHT KIDNEY: Normal. Right kidney measures 11.2 cm in length. Lobulated contour. 2 cm simple cyst, which requires no follow-up. No hydronephrosis. ASCITES: None. PLEURAL EFFUSIONS: None. OTHER: Pancreas was obscured. US/Abdomen Limited IMPRESSION: Previous cholecystectomy. No biliary ductal dilatation. Simple right renal cyst which requires no follow-up. No acute right upper lung abnormality. Electronically Signed: Rodrigo Daugherty MD at 7:05 EDT ,
[2024-01-31] MEDS: traZODone 50 MG Tablet PO (21:28)
[2024-02-01 02:15] VITALS: BP 135/86; PULSE 82; RESP 18; TEMP 36.5; O2SAT 97
[2024-02-01 05:50] VITALS: BP 131/77; PULSE 63; RESP 18; TEMP 36.6; O2SAT 94
[2024-02-01 07:06] LABS: Hematocrit 42.7 % (40-54); Mean Corp Hgb Conc 32.8 g/dL (32-36); Mean Corpuscular Hgb 31.3 pg (27.0-32.0); Mean Corpuscular Volume 95.5 fL (80-94); Mean Platelet Vol. 9.7 fl (6.2-12.0); Platelet Count 219 K/mm3 (150-450); RBC Distribution Width CV 12.8 % (11.6-14.6); RBC Distribution Width SD 45.6 fl (35.1-43.9); Red Blood Count 4.47 M/mm3 (4.6-6.2); White Blood Count 4.2 K/mm3 (4.4-11.0)
--- NOTE | 2024-02-01 07:55 | PN.HOSP_ITS ---
Reason for Visit Reason for Visit: Diagnoses Dizziness and giddiness (01/31/24) Abnormal levels of other serum enzymes (01/31/24) Subjective Subjective Has been having light-headedness for sometime. He would experience it when standing up, but would resolved. Over the past 4 days had worsening dizziness with change in position. Saw therapy and had Sanchez maneuver which made it worse. Objective Data Objective Data Vital Signs: Vital Signs Temp Pulse Resp BP Pulse Ox O2 Del Method FiO2 36.6 C 63 18 131/77 H 94 CPAP 21 02/01/24 05:50 02/01/24 05:50 02/01/24 05:50 02/01/24 05:50 02/01/24 05:50 02/01/24 05:50 01/31/24 23:55 Oxygen Delivery Method CPAP Weight: 87.18 kg Body Mass Index (BMI) 28.3 Intake & Output: Intake and Output for Last 24 Hours 01/30/24 01/31/24 02/01/24 23:59 23:59 23:59 Intake Total 770 / 770 Balance 770 / 770 Lab / Micro Data 02/01/24 05:55 02/01/24 05:55 Labs: Laboratory Results - last 24 hr 01/31/24 13:28: WBC 4.4, RBC 4.53 L, Hgb 14.1, Hct 43.1, MCV 95.1 H, MCH 31.1, MCHC 32.7, RDW Std Deviation 45.6 H, RDW Coeff of Dee 13.0, Plt Count 236, MPV 9.4, Immature Gran % (Auto) 0.900, Neut % (Auto) 44.5 L, Lymph % (Auto) 45.7 H, [place] % (Auto) 8.0, Eos % (Auto) 0.0, Baso % (Auto) 0.9, Absolute Neuts (auto) 1.9 L, Absolute Lymphs (auto) 1.99, Nucleated RBC % 0, Sodium 140, Potassium 4.0, Chloride 104, Carbon Dioxide 30.0, Anion Gap 6, BUN 14, Creatinine 0.91, Estim Creat Clear Calc 78.00, Est GFR (MDRD) Af Amer 105, Est GFR (MDRD) Non-Af 87, BUN/Creatinine Ratio 15.5, Glucose 118 H, Hemoglobin A1c 6.2 H, Calcium 9.1, Total Bilirubin 0.50, AST 45 H, ALT 151 H, Alkaline Phosphatase 219 H, Troponin I High Sens 4, Total Protein 7.7, Albumin 3.3, Globulin 4.4 H, Albumin/Globulin Ratio 0.8 L 02/01/24 05:55: WBC 4.2 L, RBC 4.47 L, Hgb 14.0, Hct 42.7, MCV 95.5 H, MCH 31.3, MCHC 32.8, RDW Std Deviation 45.6 H, RDW Coeff of Dee 12.8, Plt Count 219, MPV 9.7 Radiography Diagnostic Testing: Radiology Impression Brain CT 01/31/24 13:34 IMPRESSION: Chronic involutional changes of the brain. Electronically Signed: Jamal Lyn MD at 14:28 EDT , Brain MRI 01/31/24 15:33 IMPRESSION: Involutional changes of the brain, as described above. Electronically Signed: Olman Zayas MD at 20:49 EDT , Abdomen Ultrasound 01/31/24 17:26 IMPRESSION: Previous cholecystectomy. No biliary ductal dilatation. Simple right renal cyst which requires no follow-up. No acute right upper lung abnormality. Electronically Signed: Rodrigo Daugherty MD at 7:05 EDT , Physical Exam Const alert and no apparent distress HEENT head/scalp atraumatic and moist oral mucous membranes Eyes Eyes Narrative: left lateral nystagmus. Assessment & Plan Assessment/Plan (1) Elevated liver enzymes: (2) Dizziness: PLAN: Plan Vertigo * Patient for past 4 days been having dizziness change position. He has a left lateral nystagmus and had worsening symptoms with Sanchez maneuvers. I suspect that this is benign paroxysmal positional vertigo. MRI of the brain was negative. * Recommending as needed meclizine, outpatient therapy for Sanchez maneuvers. * Patient has been having some chronic dizziness which may be some component of orthostasis though his orthostats here were negative. Did encourage him to have more liberal salt intake. Elevated LFTs with reported liver abnormality * LFTs on admit with AST 45, ALT 151, alk phos 219, T. bili normal. * Apparently had a liver abnormality seen on imaging [facility] recently, unclear on any further details regarding this. * Patient notably denies any right upper quadrant pain or discomfort at any point in the past. * Will order right upper quadrant ultrasound for further evaluation. Trend LFTs. * Ultrasound negative * Recommend follow-up as he was previously through the [facility]. Chronic medical conditions: ? Depression/insomnia: Continue home bupropion and trazodone. ? History of Crohn's disease: Stable. Continue home mesalamine if available. Continue home Imodium as needed. DVT prophylaxis: SCDs CODE STATUS: Full code, verified Expected disposition: Home
[2024-02-01 08:43] VITALS: BP 119/72; PULSE 69; RESP 16; TEMP 36.1; O2SAT 95
[2024-02-01] MEDS: buPROPion (SR) 150 MG Tablet.SA PO (08:55)
[2024-02-01] MEDS: MESALAMINE 0.375 GM CAP.ER.24H 1.5 GM PO (08:55)
[2024-02-01 08:56] LABS: ALB/GLOB Ratio 0.8 RATIO (0.9-2.4); AST(SGOT) 43 U/L (15-37); Alanine Aminotransfer ALT/SGPT 123 U/L (16-61); Albumin, Serum 3.2 g/dL (3.2-5.0); Alkaline Phosphatase 196 U/L (45-117); Anion Gap 5 (5-15); BUN 14 mg/dL (7-18); BUN/Creat Ratio 15.5 RATIO (10-20); Calcium,Total 9.3 mg/dL (8.5-10.1); Chloride 108 mmol/L (98-107); EST Glomerular Filtration Rate 87 mL/min (>60); Est Glom Filt Rate - Afr Amer 106 mL/min (>60); Estimated Creatinine Clearance 78.72 ml/min; Globulin 3.8 g/dL (2.2-4.2); Glucose 100 mg/dL (74-106); Potassium 4.3 mmol/L (3.5-5.1); Sodium Level 139 mmol/L (136-145)
[2024-02-01] MEDS: Loperamide 2 MG Capsule PO (08:59)
[2024-02-01 09:25] LABS: Cholesterol 153 mg/dL (200); High Density Lipoprotein 49 mg/dL; Triglycerides 69 mg/dL; Very Low Density Lipoprotein 14 mg/dL (5-40)
--- NOTE | 2024-02-01 10:44 | DS.PCM_ITS ---
Providers Date of Admission: 01/31/24 Primary Care Physician: [facility] Consultations 01/31/24 17:26 Consult: Tele-Neurology Routine Consulting Provider: [facility] Reason for Consult: Acute Ischemic Stroke/TIA EMERGENT Consult: No MD Notified: Yes Date Notified: 01/31/24 Time Notified: 17:59 Method of Notification: Answering Service Nursing Unit Staff Notify [facility] of Tele-Neurology Consult: Yes Reason For Visit: DIZZINESS, CVA RULE OUT Diagnosis Discharge Diagnosis (1) Elevated liver enzymes: Status: Acute Code(s): R74.8 - Abnormal levels of other serum enzymes (2) Dizziness: Status: Acute Code(s): R42 - Dizziness and giddiness Plan Vertigo * Patient for past 4 days been having dizziness change position. He has a left lateral nystagmus and had worsening symptoms with Sanchez maneuvers. I suspect that this is benign paroxysmal positional vertigo. MRI of the brain was negat alize. * Recommending as needed meclizine, outpatient therapy for Sanchez maneuvers. * Patient has been having some chronic dizziness which may be some component of orthostasis though his orthostats here were negative. Did encourage him to have more liberal salt intake. Elevated LFTs with reported liver abnormality * LFTs on admit with AST 45, ALT 151, alk phos 219, T. bili normal. * Apparently had a liver abnormality seen on imaging at the [facility] recently, unclear on any further details regarding this. * Patient notably denies any right upper quadrant pain or discomfort at any point in the past. * Will order right upper quadrant ultrasound for further evaluation. Trend LFTs. * Ultrasound negative * Recommend follow-up as he was previously through the [place]. Chronic medical conditions: ? Depression/insomnia: Continue home bupropion and trazodone. ? History of Crohn's disease: Stable. Continue home mesalamine if available. Continue home Imodium as needed. DVT prophylaxis: SCDs CODE STATUS: Full code, verified Expected disposition: Home Medications at Discharge Home Medications bupropion HCl 150 mg 24 hr tablet, extended release 150 mg PO BID 01/31/24 loperamide 2 mg tablet (Imodium A-D) 2 mg PO BID PRN diarrhea 01/31/24 mesalamine 0.375 gram capsule,extended release 24 hr (Apriso) 1.5 g PO BID colitis 01/31/24 trazodone 50 mg tablet 50 mg PO QHS insomnia 01/31/24 meclizine 12.5 mg tablet 12.5 mg PO TID PRN dizziness #20 tabs 02/01/24 Hospital Course Operations None Summary of Care Provided Minutes Spent on Discharge: 32 Hospital Course: Patient presents with acute dizziness. Began about 4 days prior. Worse with change in position. Patient had left lateral nystagmus. MRI of the brain was negative. Seen by therapy who did Sanchez maneuvers which actually made him hart siently feel worse. Recommend the patient follow-up with physical therapy for vestibular rehab, take meclizine as needed. Also had chronic dizziness upon standing. He described it more as lightheadedness but will resolve with time. Did advise patient increase his salt intake to see if that would help. Weight / BMI Weight Weight: 87.18 kg Body Mass Index (BMI) 28.3 ABG / Lab / Microbiology Data 02/01/24 05:55 02/01/24 05:55 Laboratory: Laboratory Results - last 24 hr 01/31/24 13:28: WBC 4.4, RBC 4.53 L, Hgb 14.1, Hct 43.1, MCV 95.1 H, MCH 31.1, MCHC 32.7, RDW Std Deviation 45.6 H, RDW Coeff of Dee 13.0, Plt Count 236, MPV 9.4, Immature Gran % (Auto) 0.900, Neut % (Auto) 44.5 L, Lymph % (Auto) 45.7 H, [place] % (Auto) 8.0, Eos % (Auto) 0.0, Baso % (Auto) 0.9, Absolute Neuts (auto) 1.9 L, Absolute Lymphs (auto) 1.99, Nucleated RBC % 0, Sodium 140, Potassium 4.0, Chloride 104, Carbon Dioxide 30.0, Anion Gap 6, BUN 14, Creatinine 0.91, Estim Creat Clear Calc 78.00, Est GFR (MDRD) Af Amer 105, Est GFR (MDRD) Non-Af 87, BUN/Creatinine Ratio 15.5, Glucose 118 H, Hemoglobin A1c 6.2 H, Calcium 9.1, Total Bilirubin 0.50, AST 45 H, ALT 151 H, Alkaline Phosphatase 219 H, Troponin I High Sens 4, Total Protein 7.7, Albumin 3.3, Globulin 4.4 H, Albumin/Globulin Ratio 0.8 L 02/01/24 05:55: WBC 4.2 L, RBC 4.47 L, Hgb 14.0, Hct 42.7, MCV 95.5 H, MCH 31.3, MCHC 32.8, RDW Std Deviation 45.6 H, RDW Coeff of Dee 12.8, Plt Count 219, MPV 9.7, Sodium 139, Potassium 4.3, Chloride 108 H, Carbon Dioxide 26.0, Anion Gap 5, BUN 14, Creatinine 0.90, Estim Creat Clear Calc 78.72, Est GFR (MDRD) Af Amer 106, Est GFR (MDRD) Non-Af 87, BUN/Creatinine Ratio 15.5, Glucose 100, Calcium 9.3, Total Bilirubin 0.50, AST 43 H, ALT 123 H, Alkaline Phosphatase 196 H, Total Protein 7.0, Albumin 3.2, Globulin 3.8, Albumin/Globulin Ratio 0.8 L, Triglycerides 69, Cholesterol 153, LDL Cholesterol 90, VLDL Cholesterol 14, HDL Cholesterol 49 Radiography Diagnostic Testing: Radiology Impression Brain CT 01/31/24 13:34 IMPRESSION: Chronic involutional changes of the brain. Electronically Signed: Jamal Lyn MD at 14:28 EDT , Brain MRI 01/31/24 15:33 IMPRESSION: Involutional changes of the brain, as described above. Electronically Signed: Olman Zayas MD at 20:49 EDT , Abdomen Ultrasound 01/31/24 17:26 IMPRESSION: Previous cholecystectomy. No biliary ductal dilatation. Simple right renal cyst which requires no follow-up. No acute right upper lung abnormality. Electronically Signed: Rodrigo Daugherty MD at 7:05 EDT , D/C Instructions Discharge Diet: No restrictions (Increase salt intake) Meaningful Use Info Meaningful Use Diagnoses (Choose all that apply): None applicable Discharge Plan Admission Admit Date/Time: 01/31/24 15:30 Primary Reason for Your Visit: Vertigo Attending Provider: Arjun Liang Primary Care Provider: [facility] Consulting Providers: Tommie Rosas; Juliet Denny; Deya Alamo; Aimee Olmedo; Halle Benavides; Rich Orlando; Ami Lewis; Daniel Marino; Kendall Gr; Luli Tubbs; Allan Wilson; Padma Arriaza; Toño Valverde; Marta Jamil; Stephon Michel; Shant Canales; Lázaro Sherwood; Geovanna Mistry; Ander Wheeler; Stepan Darden Instructions Patient Instructions: BPPV Additional Instructions / Restrictions: Follow-up with physical therapy for further vestibular rehab. Follow-up with your doctors for the abnormal liver testing that you have had previously. Discharge Orders/Prescriptions Prescriptions: New meclizine 12.5 mg tablet 12.5 mg PO TID PRN (Reason: dizziness) Qty: 20 0RF Continued loperamide [Imodium A-D] 2 mg tablet 2 mg PO BID PRN (Reason: diarrhea) mesalamine [Apriso] 0.375 gram capsule,extended release 24hr 1.5 g PO BID Patient Comments: takes 4 capsules in morning and 5caps in the evening Rx Instructions: orally twice a day; bupropion HCl 150 mg tablet extended release 24 hr 150 mg PO BID trazodone 50 mg tablet 50 mg PO QHS Other Ambulatory Orders: Physical Therapy Evaluation (Routine) Location: None Selected Ordered By: Dr. Arjun Liang Referrals / Follow Up: [facility] [Primary Care Provider] - Disposition Disposition (needs filled in before D/C Order can be placed): Home, Self Care Charges/Coding Visit Charges Inpatient E&M: 39938 Disch Hosp >30min
--- NOTE | 2024-02-01 12:11 | CASEMGMT ---
Addendum entered by Scotty Danielson 02/01/24 12:45: Script for OP vestibular therapy provided to pt. This was also faxed to [facility] per his request. Pt/ will call [facility] later for benefit determination. They deny having any further needs/questions. Original Note: TASHI WHYTE NOTE: Discharge order is in. Therapy notes reviewed. PT recommends OP vestibular therapy. OT states no additional therapy. TASHI WHYTE to room. Introduced self and role. Pt resting in bed. @ bedside. Discussed therapy's recommendations. Pt states he is interested in OP therapy, he is just not sure if he wants to have it billed through [facility] or go through the [facility]. Questions answered. Pt states if he goes through [facility], he would like to go to [facility] (as he has been there before) and would like to know what his co-pay is before making the decision. TASHI WHYTE offered to fax the OP script to [facility] and then pt states he will f/u with [facility] once benefits are determined. Pt and provided w/[facility] phone #. Pt and aware if he chooses to get OP therapy through the [facility] that he will need to get an order/script from the [facility] and they would let him know what locations he could go to. Pt uses a [facility] w/therapy today. He verifies he does have one @ home and denies need for any DME. Pt and deny having further discharge planning needs/concerns. Abel WILSON RN, CM
[2024-02-01 13:18] VITALS: BP 117/73; PULSE 72; RESP 16; TEMP 36.6; O2SAT 96
--- NOTE | 2024-02-01 14:33 | PHA.DC_ITS ---
Pharmacy [facility] has performed discharge medication reconciliation and counseling for this patient. 1. MECLIZINE 12.5MG PO TID PRN DIZZINESS The patient's discharge medication list was reviewed for discrepancies and discrepancies were resolved. The patient was counseled on the following discharge medications and changes in medications for homegoing were reviewed. The Reason for Use, instructions for use, and potential side effects were reviewed for all new medications. The patient's questions regarding all of their medications were answered. The patient was able to verbally demonstrate an understanding of their discharge medications. Medications at Discharge Home Medications bupropion HCl 150 mg 24 hr tablet, extended release 150 mg PO BID 01/31/24 loperamide 2 mg tablet (Imodium A-D) 2 mg PO BID PRN diarrhea 01/31/24 mesalamine 0.375 gram capsule,extended release 24 hr (Apriso) 1.5 g PO BID colitis 01/31/24 trazodone 50 mg tablet 50 mg PO QHS insomnia 01/31/24 meclizine 12.5 mg tablet 12.5 mg PO TID PRN dizziness #20 tabs 02/01/24
--- NOTE | 2024-02-01 16:05 | NEURO.CONS ---
Assessment and Plan: Neuro Assessment/Plan PIETRO STEWART is a 73 M with a past medical history of chrons disease , being evaluated by Teleneurology for dizziness. Pt complains of lightheadedness for few days, no clear vertigo, MRI with no acute stroke, presentation could be due orthostatic hypotension. Plan: TTE, intermediate manager event monitor, check orthostatic pressure follow up with Neurology HPI Consult Data Date of Consult: 02/01/24 HPI Narrative Reason for Consultation: dizziness HPI Narrative: PIETRO STEWART, is a 73 M who presents with hx of dizziness. he reports feeling light headed for 4 days. he reports having symptoms only when standing up and trying to walk. he denies feeling like the room is spinning, he has hx of vertigo but he does not believe this presentation is similar to his vertigo. he denies double vision, weakness, numbness, slurred speech or visual disturbance. [facility] Medical History Acute Crohn's disease Cholecystectomy planned Home Medications bupropion HCl 150 mg 24 hr tablet, extended release 150 mg PO BID 01/31/24 [History Last Taken 01/31/24] loperamide 2 mg tablet (Imodium A-D) 2 mg PO BID PRN diarrhea 01/31/24 [History Last Taken 01/31/24] mesalamine 0.375 gram capsule,extended release 24 hr (Apriso) 1.5 g PO BID colitis 01/31/24 [History Last Taken 01/31/24] trazodone 50 mg tablet 50 mg PO QHS insomnia 01/31/24 [History Last Taken 01/30/24] meclizine 12.5 mg tablet 12.5 mg PO TID PRN dizziness #20 tabs 02/01/24 [Rx Last Taken Unknown] Allergy/AdvReac Type Severity Reaction Status Date / Time No Known Allergies Allergy Verified 01/31/24 12:50 Surgical History History of back surgery Social History Smoking Status: Never smoker Vital Signs Vital Signs Vital Signs: 01/31/24 17:26 01/31/24 20:04 01/31/24 21:27 Temperature 97.4 F L 97.6 F L Temperature Source Oral Oral Pulse Rate 66 69 Pulse Strength Respiratory Rate 16 18 Respiratory Effort Normal Non-Labored Respiratory Depth Normal Respiratory Pattern Normal Blood Pressure 112/55 L 125/67 H Blood Pressure Mean 74 86 Blood Pressure Source Monitor Monitor Blood Pressure Position Semi-Fowlers Sitting Blood Pressure Location Left Arm Right Arm Pulse Ox 99 93 Oxygen Delivery Method Room Air Room Air Room Air Fraction of Inspired Oxygen (FIO2) 01/31/24 23:55 02/01/24 02:15 01/31/24 21:30 Temperature 97.7 F L Temperature Source Axillary Pulse Rate 82 Pulse Strength Normal (2+) Respiratory Rate 18 Respiratory Effort Respiratory Depth Respiratory Pattern Blood Pressure 135/86 H Blood Pressure Mean 102 Blood Pressure Source Monitor Blood Pressure Position Semi-Fowlers Blood Pressure Location Right Arm Pulse Ox 96 97 Oxygen Delivery Method CPAP CPAP Fraction of Inspired Oxygen (FIO2) 21 02/01/24 02:15 02/01/24 05:50 02/01/24 08:36 Temperature 97.8 F Temperature Source Axillary Pulse Rate 63 Pulse Strength Respiratory Rate 18 Respiratory Effort Normal Non-Labored Normal Non-Labored Respiratory Depth Normal Normal Respiratory Pattern Normal Normal Blood Pressure 131/77 H Blood Pressure Mean 95 Blood Pressure Source Monitor Blood Pressure Position Semi-Fowlers Blood Pressure Location Right Arm Pulse Ox 94 Oxygen Delivery Method CPAP CPAP Room Air Fraction of Inspired Oxygen (FIO2) 02/01/24 08:43 02/01/24 08:43 02/01/24 13:18 Temperature 96.9 F L 96.9 F L 97.8 F Temperature Source Temporal Temporal Oral Pulse Rate 69 69 72 Pulse Strength Respiratory Rate 16 16 16 Respiratory Effort Respiratory Depth Respiratory Pattern Blood Pressure 119/72 119/72 117/73 Blood Pressure Mean 87 87 87 Blood Pressure Source Monitor Monitor Monitor Blood Pressure Position Sitting Sitting Semi-Fowlers Blood Pressure Location Right Arm Right Arm Right Arm Pulse Ox 95 95 96 Oxygen Delivery Method Room Air Room Air Room Air Fraction of Inspired Oxygen (FIO2) Weight Weight: 87.18 kg Body Mass Index (BMI) 28.3 EEG Results Procedure Details EEG Procedure Details: PIETRO STEWART is a 73 year old M with a past medical history of , who presents for evaluation of Electroencephalogram on DATE at TIME NIHSS NIHSS Nursing Documentation NIHSS Nursing Documentation: NIHSS: Ischemic Stroke/TIA Start: 01/31/24 17:26 Text: For PCU Patients: NIH and Neuro Check every 4 Status: Discharge hours and PRN Freq: [id number] Protocol: Activity Type Activity Date Activity User E-sign Co-sign Detail Recorded Client Recorded Date Recorded By Document 02/01/24 08:47 MS Desktop 02/01/24 08:54 MS 02/01/24 08:47 NIH Stroke Scale [NIHSS] A score of 0 is normal or asymptomatic . Total possible score is 42. Inpatient: RN or Physician to activate a stroke alert for onset of new stroke symptoms or with NIHSS increase >/= 3 points. Following change in neurological status, NIHSS will be performed per physician order or more frequently PRN. -1a. Level of Consciousness Alert; keenly responsive -1b. LOC Questions Answers BOTH questions correctly. -1c. LOC Commands Performs both tasks correctly . -2. Best Gaze Normal -3. Visual No visual loss -4. Facial Palsy Normal symmetrical movements -5a. Left Arm No drift; arm holds 90 (or 45 ) degrees for full 10 seconds -5b. Right Arm No drift; arm holds 90 (or 45 ) degrees for full 10 seconds -6a. Left Leg No drift; leg holds 30-degree position for full 5 seconds -6b. Right Leg No drift; leg holds 30-degree position for full 5 seconds -7. Limb Ataxia Absent -8. Sensory Normal; no sensory loss -9. Best Language No aphasia; normal -10. Dysarthria Normal -11. Extinction and Inattention No abnormality -Total 0 Query Text:A score of 0 is normal or asymptomatic. Total possible score is 42 . ED: Notify Physician for NIHSS increase by > / = 3 points. Inpatient: RN or Physician to activate a stroke alert for NIHSS increase of > / = 3 points. Coma Scale [Assess] -Eye Opening Spontaneous -Motor Obeys Commands -Verbal Oriented [Total] -Coma Scale Total 15 Physical Exam Narrative he is awake alert oriented to self, place and time. he has normal language, face symmetric, no nystagmus, move all ext antigravity normal FTS normal HAZEL sensation positive Romberg sign Lab / Micro Data 02/01/24 05:55 02/01/24 05:55 Labs: Laboratory Results - last 24 hr 01/31/24 13:28: Hemoglobin A1c 6.2 H 02/01/24 05:55: WBC 4.2 L, RBC 4.47 L, Hgb 14.0, Hct 42.7, MCV 95.5 H, MCH 31.3, MCHC 32.8, RDW Std Deviation 45.6 H, RDW Coeff of Dee 12.8, Plt Count 219, MPV 9.7, Sodium 139, Potassium 4.3, Chloride 108 H, Carbon Dioxide 26.0, Anion Gap 5, BUN 14, Creatinine 0.90, Estim Creat Clear Calc 78.72, Est GFR (MDRD) Af Amer 106, Est GFR (MDRD) Non-Af 87, BUN/Creatinine Ratio 15.5, Glucose 100, Calcium 9.3, Total Bilirubin 0.50, AST 43 H, ALT 123 H, Alkaline Phosphatase 196 H, Total Protein 7.0, Albumin 3.2, Globulin 3.8, Albumin/Globulin Ratio 0.8 L, Triglycerides 69, Cholesterol 153, LDL Cholesterol 90, VLDL Cholesterol 14, HDL Cholesterol 49 Imaging Radiology Impression Brain MRI 01/31/24 15:33 IMPRESSION: Involutional changes of the brain, as described above. Electronically Signed: Olman Zayas MD at 20:49 EDT , Abdomen Ultrasound 01/31/24 17:26 IMPRESSION: Previous cholecystectomy. No biliary ductal dilatation. Simple right renal cyst which requires no follow-up. No acute right upper lung abnormality. Electronically Signed: Rodrigo Daugherty MD at 7:05 EDT ,
== END 2024-02-01 13:48 | disposition home or self-care (01) ==
LOC: ED 15:29 → PCU 15:49
PROVIDERS: Admitting Provider Hospitalist; Emergency Provider Emergency Medicine
DX: R74.8 Abnormal levels of other serum enzymes (principal); K50.90 Crohn's disease, unspecified, without complications; R42 Dizziness and giddiness; H55.09 Other forms of nystagmus; Z79.899 Other long term (current) drug therapy; F32.A Depression, unspecified; G47.00 Insomnia, unspecified
CPT/HCPCS: 36415; 70450; 70551; 76705; 80053; 80061; 83036; 84484; 85025; 85027; 93005; 93306; 94762; 96360; 96361; 97162; 97166; 99221; 99285; G0378

== ENCOUNTER 2024-03-25 10:01 | Observation (INO) | payer OTHER, SELFPAY ==
[2024-03-25] VITALS (11 sets, daily range): BP systolic 120–143; BP diastolic 62–89; PULSE 60–78; RESP 13–23; TEMP 36.4–36.6; O2SAT 93–96; BMI 27.6; BMI 30.4; BMI 27.9
--- NOTE | 2024-03-25 10:16 | EX.ED.DYSGE1 ---
HPI History of Present Illness Chief Complaint: Neuro S/Sx PFSH PFS Medical History (Updated 02/09/24 @ 00:03 by Hill Brooks) Acute Crohn's disease Cholecystectomy planned Hx of Crohn's disease Home Medications bupropion HCl 150 mg 24 hr tablet, extended release 150 mg PO BID 01/31/24 [History Last Taken 01/31/24] loperamide 2 mg tablet (Imodium A-D) 2 mg PO BID PRN diarrhea 01/31/24 [History Last Taken 01/31/24] mesalamine 0.375 gram capsule,extended release 24 hr (Apriso) 1.5 g PO BID colitis 01/31/24 [History Last Taken 01/31/24] trazodone 50 mg tablet 50 mg PO QHS insomnia 01/31/24 [History Last Taken 01/30/24] meclizine 12.5 mg tablet 12.5 mg PO TID PRN dizziness #20 tabs 02/01/24 [Rx Last Taken Unknown] Allergy/AdvReac Type Severity Reaction Status Date / Time No Known Allergies Allergy Verified 01/31/24 12:50 Surgical History (Updated 03/25/24 @ 10:42 by Jeaneth Kerr) History of back surgery Hx of cholecystectomy Social History Smoking Status: Never smoker EXAM Physical Exam Const Vital Signs: 03/25/24 10:02 03/25/24 10:27 03/25/24 10:27 Temperature 97.6 F L Temperature Source Temporal Pulse Rate 73 73 Respiratory Rate 18 14 Blood Pressure 143/89 H 136/78 H Blood Pressure Mean 107 97 Pulse Ox 94 94 Oxygen Delivery Method Room Air Room Air Room Air 03/25/24 10:57 03/25/24 10:30 03/25/24 11:27 Temperature Temperature Source Pulse Rate 67 73 66 Respiratory Rate 13 13 13 Blood Pressure 141/74 H 136/78 H 121/62 H Blood Pressure Mean 96 97 81 Pulse Ox 93 94 93 Oxygen Delivery Method Room Air Room Air Room Air 03/25/24 11:27 Temperature Temperature Source Pulse Rate 66 Respiratory Rate 23 H Blood Pressure 132/66 H Blood Pressure Mean 88 Pulse Ox 94 Oxygen Delivery Method MDM MDM MDM Narrative Medical decision making narrative: HISTORY OF PRESENT ILLNESS: 74-year-old male presents with concern for left-sided sensory changes. Last known well was 9 AM on 03/25/2024. States he began experiencing tingling in his left upper and lower extremities. Denies any facial drooping, loss of vision, loss of movement or coordination. Denies any chest pain, palpitations. Notes nausea. Notes feeling lightheaded. Denies diarrhea, bleeding diathesis. Denies high blood pressure history, hyperlipidemia history, stroke or heart attack history. REVIEW OF SYSTEMS: Pertinent positives: Sensory changes Pertinent negatives: As per HPI PHYSICAL EXAM: Nursing triage notes reviewed, Vital signs reviewed Constitutional: please see mdm HENT: MMM Eyes: Pupils equal round and reactive to light, Extraocular muscles intact Neck: No stridor, no JVD, full neck ROM Lungs: Clear to auscultation, No wheezing or rales. No increased work of breathing, no conversational dyspnea, no accessory muscle use, no nasal flaring. No respiratory distress noted Heart: Regular rate and rhythm, No murmurs, No rubs and No gallops, 2+ distal pulses (radial, femoral, posterior tibial) in all extremities Abdomen: Soft, there is no tenderness, rigidity, rebound or guarding, no obvious peritoneal signs, no palpable pulsatile abdominal masses, no auscultated abdominal bruit : No CVAT Extremities: No edema Neuro: No focal neurological deficits, cranial nerves II through XII intact, 5/5 strength in all extremities. Intact sensation to light touch in all extremities (states he feels more sensation in the left side), 2+ reflexes bilateral patella tendons. Normal gait. No ataxia. NIH of 1. Skin: No rash or lesions noted. MEDICAL DECISION MAKING: Chief Complaint: Left-sided sensory changes External records reviewed: Imaging reviewed: CT scan of the brain from January 2024 shows chronic embolism changes. MRI of the brain from January shows no evidence of ischemia Factors affecting care: none Crohn's, vertigo Social determinants of health: Elderly History obtained from others: Consults: Stroke radiology (Dr. Ngo), stroke neurology, hospitalist (Dr. Cheney) [facility] Narrative: Patient was initially evaluated approximately 20 minutes after arrival secondary to poor department conditions. Initial evaluation revealed stroke scale of 1 which prompted stroke team activation given he is within the 4.5 window for TNK. Patient was hemodynamically stable, afebrile and nontoxic-appearing. NIH of 1 for sensory changes in the left upper and lower extremities. I considered the following differential diagnosis: CVA, TIA, focal seizure, ICH I obtained a broad lab and imaging workup to further elucidate the etiology the patient's complaints. ALL IMAGES (IF OBTAINED) HAVE BEEN PERSONALLY REVIEWED AND INTERPRETED BY MYSELF. EKG with first-degree AV block, prolonged NJ interval, no STEMI, no arrhythmia CT head, CT of the head and neck show no evidence of ICH or large vessel occlusion CBC without leukocytosis, severe anemia, no thrombocytopenia. No coagulopathy BMP without evidence of significant electrolyte abnormalities, no anion gap, no acute kidney injury. High-sensitivity troponin is negative, no evidence of myocardial ischemia I have personally reviewed the patient's chest x-ray. Chest x-ray is unremarkable for pulmonary edema, pneumothorax, pneumonia or focal cardiopulmonary abnormality. The synthesis of the patient's history, physical exam, labs images suggest no obvious life-limiting abnormalities including signs of ICH, large vessel occlusion, anemia, arrhythmia or myocardial ischemia however given his advanced age and concern for strokelike symptoms he will be admitted for confirmatory MRI. The patient and/or family, caregivers express understanding. The patient and/or family, caregivers agrees with the plan. Shared decision making: I will have a discussion with the patient and or visitors regarding risk/benefits of further testing or admission. They will be made aware of of the risk/benefits inherent in this decision they will be given the opportunity to voice understanding. Total critical care time today provided was at least 0 minutes. This excludes separately billable procedures. Critical care time (if documented) is secondary to the patient having high probability of clinically significant/life threatening deterioration in the patient's condition which required my urgent intervention. Impression: 1. Left-sided sensory changes 2. Nausea 3. Leukopenia Dispo: Admit to PCU ops This note was generated with [employer] dictation software. It may contain incorrect words, spelling, and punctuation that were not noted in review of the chart prior to signing. Lab Data Labs: Laboratory Results - last 24 hr 03/25/24 10:30 WBC 3.8 L RBC 4.54 L Hgb 14.2 Hct 42.9 MCV 94.5 H MCH 31.3 MCHC 33.1 RDW Std Deviation 45.7 H RDW Coeff of Dee 13.1 Plt Count 190 MPV 9.6 Immature Gran % (Auto) 0.300 Neut % (Auto) 45.2 L Lymph % (Auto) 43.8 H [place] % (Auto) 9.9 Eos % (Auto) 0.0 Baso % (Auto) 0.8 Absolute Neuts (auto) 1.7 L Absolute Lymphs (auto) 1.68 Nucleated RBC % 0 PT 14.5 INR 1.1 APTT 31.6 Sodium 140 Potassium 4.0 Chloride 104 Carbon Dioxide 29.0 Anion Gap 7 BUN 13 Creatinine 0.91 Estim Creat Clear Calc 81.59 Est GFR (MDRD) Af Amer 105 Est GFR (MDRD) Non-Af 87 BUN/Creatinine Ratio 14.3 Glucose 123 H Calcium 9.5 Troponin I High Sens < 3 L Radiography Diagnostic Testing: Clinical Impression(s) from Imaging Studies Brain CT 03/25/24 10:27 IMPRESSION: Chronic involutional changes of the brain. N.B. : The above Results were Read Back by Pj Ngo MD to Lonnie Caban DO, and understanding confirmed on 03/25/2024 10:54:36 (ET). Electronically Signed: Pj Ngo MD at 10:48 EDT , Head/Neck CTA 03/25/24 10:28 IMPRESSION: Normal CTA Head. No aneurysm or large vessel occlusion. There is plaque with mild, less than 50%, narrowing of the internal carotid arteries. No hemodynamically significant internal carotid artery stenosis. Electronically Signed: Pj Ngo MD at 11:23 EDT , Discharge Plan Triage Chief Complaint: Neuro S/Sx ED Provider: Lonnie Caban Dx/Rx/DC Orders Prescriptions: No Action loperamide [Imodium A-D] 2 mg tablet 2 mg PO BID PRN (Reason: diarrhea) mesalamine [Apriso] 0.375 gram capsule,extended release 24hr 1.5 g PO BID Patient Comments: takes 4 capsules in morning and 5caps in the evening Rx Instructions: orally twice a day; bupropion HCl 150 mg tablet extended release 24 hr 150 mg PO BID trazodone 50 mg tablet 50 mg PO QHS meclizine 12.5 mg tablet 12.5 mg PO TID PRN (Reason: dizziness) Qty: 20 0RF [facility] Care Provider[facility] [Primary Care Provider] -
--- NOTE | 2024-03-25 10:27 | RAD_ITS ---
STUDY: X-RAY CHEST REASON FOR EXAM: Male, 74 years old. Neuro deficit, acute, stroke suspected TECHNIQUE: Single AP portable view of the chest. COMPARISON: None. FINDINGS: The lungs are clear and expanded. There is no demonstrated pleural abnormality. Normal size heart. Normal mediastinum and leonides. Normal visualized pulmonary arteries. Normal visualized aortic arch and descending thoracic aorta. There are diffuse degenerative changes of the visualized thoracic spine. Normal visualized ribs, clavicles, and shoulders. There is no demonstrated abnormality of the visualized soft tissue structures of the upper abdomen. RAD/Chest 1 View IMPRESSION: Degenerative changes, as described above. No demonstrated acute cardiopulmonary process. Electronically Signed: Pj Ngo MD at 12:26 EDT ,
--- NOTE | 2024-03-25 10:27 | CT_ITS ---
STUDY: CT BRAIN WITHOUT CONTRAST REASON FOR EXAM: Male, 74 years old. Neuro deficit, acute, stroke suspected RADIATION DOSAGE (If Supplied By Facility): CTDIvol = ( 44 ) mGy, DLP = ( 829 ) mGycm TECHNIQUE: Transaxial CT imaging of the brain was performed without administration of intravenous contrast material. Individualized dose optimization techniques were used for this CT. COMPARISON: Report from CT and MRI exams January 31, 2024. FINDINGS: Normal soft tissue structures. Normal calvarium. There is mild cerebral atrophy with widening of the extra-axial spaces and ventricular dilatation. There are areas of decreased attenuation within the white matter tracts of the supratentorial brain, consistent with microvascular disease changes. There are small punctate calcifications of the basal ganglia which are seen in the aging brain as a normal variant. Normal brainstem. Normal cerebellum. There is no intracranial hemorrhage. There are no findings of an acute ischemic infarction. Normal visualized paranasal sinuses. CT/STROKE Brain/Head without Cont IMPRESSION: Chronic involutional changes of the brain. N.B. : The above Results were Read Back by Pj Ngo MD to Lonnie Caban DO, and understanding confirmed on 03/25/2024 10:54:36 (ET). Electronically Signed: Pj Ngo MD at 10:48 EDT ,
--- NOTE | 2024-03-25 10:28 | CT_ITS ---
STUDY: CTA HEAD AND NECK WITH CONTRAST REASON FOR EXAM: Male, 74 years old. Left sided sensory changes RADIATION DOSAGE (If Supplied By Facility): CTDIvol = ( 26.18 ) mGy, DLP = ( 755.70 ) mGycm TECHNIQUE: CT angiography was performed with a multi-detector CT scanner. Data acquisition was obtained from the skull base through the vertex following intravenous administration of 100mL Isovue-370. MIP images were reconstructed from the axial data set. Post-processing of the angiographic images was performed, with multiplanar reformation and 3D reconstruction. Individualized dose optimization techniques were used for this CT. COMPARISON: No relevant priors. FINDINGS: Normal bilateral petrous carotid arteries. Normal right cavernous carotid artery with a normal supraclinoid bifurcation. Normal left cavernous carotid artery with a normal supraclinoid bifurcation. Normal right A1 segments of the anterior cerebral artery. Normal left A1 segments of the anterior cerebral artery. Normal intact anterior communicating artery (ACOM). Normal bilateral A2 segments of the anterior cerebral arteries. Normal right M1 and M2 segments of the middle cerebral arteries, with a normal M1 bifurcation. Normal left M1 and M2 segments of the middle cerebral arteries, with a normal M1 bifurcation. 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 There is a persistent origin of the left posterior cerebral artery with absence of the posterior communicating artery (PCOM). There is a small atretic right vertebral artery with a dominant left vertebral artery. Normal basilar artery with a normal basilar bifurcation. The visualized bilateral superior cerebellar (SCA) arteries are normal. Normal bilateral P2 and visualized P3 segments of the posterior cerebral arteries. There is no demonstrated aneurysm of the [place]. There is no demonstrated abnormality of the visualized brain. AORTIC ARCH: Normal visualized aortic arch. Normal origins of the brachiocephalic, left common carotid, and left subclavian arteries. RIGHT CAROTID ARTERIES: Normal right common carotid artery (CCA). There is mild atherosclerotic plaque formation with minimal narrowing of the right carotid bulb. There is mild atherosclerotic plaque formation of the origin of the right internal carotid artery with less than 50% cross sectional diameter stenosis. Normal visualized cervical portion of the right internal carotid artery. Normal origin of the right external carotid artery (ECA). LEFT CAROTID ARTERIES: Normal left common carotid artery (CCA). There is mild atherosclerotic plaque formation with minimal narrowing of the left carotid bulb. There is mild atherosclerotic plaque formation of the origin of the left internal carotid artery with less than 50% cross sectional diameter stenosis. Normal visualized cervical portion of the left internal carotid artery. Normal origin of the left external carotid artery (ECA). VERTEBRAL ARTERIES: There is enhancement within the bilateral vertebral arteries with a small right vertebral artery, and a dominant left vertebral artery. CT/CTA Head AND Neck W/ Contrast IMPRESSION: Normal CTA Head. No aneurysm or large vessel occlusion. There is plaque with mild, less than 50%, narrowing of the internal carotid arteries. No hemodynamically significant internal carotid artery stenosis. Electronically Signed: Pj Ngo MD at 11:23 EDT ,
--- NOTE | 2024-03-25 10:29 | NURSING ---
STROKE ALERT CALLED
[2024-03-25 10:40] LABS: Absolute Lymphocyte Count 1.68 X10^3/uL (0.83-4.51); Absolute Neutrophil Count 1.7 X10^3/uL (2.0-7.7); Basophil# 0.03 X10^3/uL; Basophil% 0.8 % (0-1); Hematocrit 42.9 % (40-54); Hemoglobin 14.2 g/dL (13.0-16.5); Lymphocyte # 1.68 X10^3/ul (0.83-4.51); Lymphocyte % 43.8 % (19-41); Mean Corp Hgb Conc 33.1 g/dL (32-36); Mean Corpuscular Hgb 31.3 pg (27.0-32.0); Mean Corpuscular Volume 94.5 fL (80-94); Mean Platelet Vol. 9.6 fl (6.2-12.0); Monocyte# 0.38 X10^3/uL; Monocyte% 9.9 % (0-10); NRBC Flagged by Analyzer 0 % (0-5); Neutrophil # 1.74 X10^3/uL (2.7-7.7); Neutrophil % 45.2 % (47-70); Platelet Count 190 K/mm3 (150-450); RBC Distribution Width CV 13.1 % (11.6-14.6); RBC Distribution Width SD 45.7 fl (35.1-43.9); Red Blood Count 4.54 M/mm3 (4.6-6.2); White Blood Count 3.8 K/mm3 (4.4-11.0)
[2024-03-25 10:53] LABS: International Normalized Ratio 1.1; Partial Thromboplast Time 31.6 Seconds (24.1-36.2); Prothrombin Time (Protime)PT. 14.5 SECONDS (11.7-14.9)
[2024-03-25 10:57] LABS: Anion Gap 7 (5-15); BUN 13 mg/dL (7-18); BUN/Creat Ratio 14.3 RATIO (10-20); Calcium,Total 9.5 mg/dL (8.5-10.1); Chloride 104 mmol/L (98-107); Creatinine, Serum 0.91 mg/dL (0.70-1.30); EST Glomerular Filtration Rate 87 mL/min (>60); Est Glom Filt Rate - Afr Amer 105 mL/min (>60); Estimated Creatinine Clearance 81.59 ml/min; Glucose 123 mg/dL (74-106); Sodium Level 140 mmol/L (136-145); Troponin-I HS < 3 pg/mL (3.0-78.0)
--- NOTE | 2024-03-25 11:29 | ED.RN ---
This RN discussed pt with Dr. Caban. Physician states to discontinue NIH scoring.
--- NOTE | 2024-03-25 12:03 | NURSING ---
DR TAM FOR DR WILKERSON
--- NOTE | 2024-03-25 12:10 | NURSING ---
PCU OBS [place] LEFT SIDED SENSORY CHANGES
[2024-03-25 12:43] LABS: Bedside Glucose 97 mg/dL (74-106)
--- NOTE | 2024-03-25 13:15 | NURSING ---
PCU OBS [place] LEFT SIDED SENSORY CHANGES
--- NOTE | 2024-03-25 13:31 | MRI_ITS ---
EXAM: MR HEAD WITHOUT INTRAVENOUS CONTRAST CLINICAL INDICATION: CVA r/o TECHNIQUE: Multiplanar and multisequence MR images of the brain were obtained without intravenous contrast. COMPARISON: CT head and CT angiogram head on the same date. FINDINGS: BRAIN AND EXTRA-AXIAL SPACES: Periventricular and subcortical T2 and T2 FLAIR hyperintensity is nonspecific although most commonly due to chronic microvascular ischemic changes in a patient of this age. No restricted diffusion to indicate recent infarct or other pathology. No intracranial mass, mass effect, or shift of midline structures. No intracranial hemorrhage or pathologic extra-axial fluid. No hydrocephalus. Patent basal cisterns. Posterior fossa structures are unremarkable. SELLA: No significant abnormality. Normal sella turcica, pituitary gland, infundibular stalk, optic chiasm and hypothalamus. AUDITORY SYSTEM: No significant abnormality. The internal auditory canals are patent. BONES/JOINTS: No significant abnormality. No discrete lytic or blastic abnormalities. SINUSES: Trace mucosal thickening in the paranasal sinuses. MASTOID AIR CELLS: Normal as visualized. Clear. ORBITS: Bilateral ocular lens extraction presumptively for the treatment of cataracts. Otherwise, no acute orbital pathology. VASCULATURE: Normal as visualized. Normal flow voids in the major intracranial circulation. MRI/Brain without Contrast IMPRESSION: Chronic microvascular ischemic changes. No evidence of acute intracranial pathology. Electronically Signed: Elliott Bernal DO at 16:37 EDT ,
--- NOTE | 2024-03-25 15:20 | CPS ---
Continuous pulse ox placed in room at bedside. Pt off floor for testing. Pt's nurse was asked to place on pt upon pt's return to floor
--- NOTE | 2024-03-25 15:56 | HP.PCM.HOS_ITS ---
HPI - General General Date of Admission: 03/25/24 HPI Narrative PIETRO STEWART, is a 74 M who presents to the hospital with concerns of stroke. He was having left arm and leg tingling but no significant weakness or numbness. He states that it started this morning when he was in the bathroom. He has been dealing with lightheadedness and dizziness for the last couple of months and while he was on the toilet he had a significant episode of lightheadedness, he did not blackout or hit his head or fall however as soon as that lightheadedness started he noticed left arm and leg tingling as well as tingling up into his left neck. Initial troponin was less than 3, CT of the brain was unremarkable as was chest x-ray and CTA of the head and neck did not show any LVO. He does not have any significant past medical history and states that he noticed the left arm tingling this morning. [facility] neurology did see him and then felt that given that his NIH was so low and the symptoms are so equivocal that he did not meet TNK criteria. He was recently admitted for dizziness at the end of January at which point he had an echocardiogram with an EF of 60% and a patent 4 mm [place] and stage I diastolic dysfunction with a PASP of 25 mmHg, during that admission neurology was consulted and recommended a long-term event monitor. [facility] Medical History (Updated 03/25/24 @ 15:[address] Dave Cheney MD) Acute Crohn's disease Cholecystectomy planned Hx of Crohn's disease Home Medications bupropion HCl 150 mg 24 hr tablet, extended release 150 mg PO BID 01/31/24 [History Last Taken 01/31/24] loperamide 2 mg tablet (Imodium A-D) 4 mg PO BID PRN diarrhea 01/31/24 [History Last Taken 01/31/24] mesalamine 0.375 gram capsule,extended release 24 hr (Apriso) 1.5 g PO BID colitis 01/31/24 [History Last Taken 01/31/24] trazodone 50 mg tablet 50 mg PO QHS insomnia 01/31/24 [History Last Taken 01/30/24] Allergy/AdvReac Type Severity Reaction Status Date / Time No Known Allergies Allergy Verified 01/31/24 12:50 Family History (Updated 03/25/24 @ 16:[address] Dave Cheney MD) Other Heart disease Surgical History (Updated 03/25/24 @ 10:42 by Jeaneth Kerr) History of back surgery Hx of cholecystectomy Social History Smoking Status: Former smoker ROS Constitutional Constitutional: Denies chills, fatigue, fever(s) or malaise Eyes Eyes: Denies blurry vision ENT HEENT: Denies headache(s) or nasal discharge Cardiovascular Cardiovascular: Reports lightheadedness; Denies chest pain, dyspnea on exertion or syncope Respiratory/Chest Respiratory/Chest: Denies cough, shortness of breath at rest or shortness of breath with exertion Gastrointestinal Gastrointestinal: Denies constipation, diarrhea, nausea or vomiting Genitourinary Genitourinary: Denies dysuria Neurologic Neurologic: Reports paresthesias LUE and LLE; Denies focal weakness, numbness or tremor(s) Psychiatric Psychiatric: Denies anxiety or depression Vital Signs Vital Signs Vital Signs: 03/25/24 10:02 03/25/24 10:27 03/25/24 10:27 Temperature 97.6 F L Temperature Source Temporal Pulse Rate 73 73 Respiratory Rate 18 14 Respiratory Effort Respiratory Depth Respiratory Pattern Blood Pressure 143/89 H 136/78 H Blood Pressure Mean 107 97 Blood Pressure Source Blood Pressure Position Blood Pressure Location Pulse Ox 94 94 Oxygen Delivery Method Room Air Room Air Room Air 03/25/24 10:57 03/25/24 10:30 03/25/24 11:27 Temperature Temperature Source Pulse Rate 67 73 66 Respiratory Rate 13 13 13 Respiratory Effort Respiratory Depth Respiratory Pattern Blood Pressure 141/74 H 136/78 H 121/62 H Blood Pressure Mean 96 97 81 Blood Pressure Source Blood Pressure Position Blood Pressure Location Pulse Ox 93 94 93 Oxygen Delivery Method Room Air Room Air Room Air 03/25/24 11:27 03/25/24 12:00 03/25/24 12:41 Temperature 97.5 F L Temperature Source Pulse Rate 66 64 78 Respiratory Rate 23 H 15 16 Respiratory Effort Respiratory Depth Respiratory Pattern Blood Pressure 132/66 H 120/69 132/71 H Blood Pressure Mean 88 86 91 Blood Pressure Source Blood Pressure Position Blood Pressure Location Pulse Ox 94 96 93 Oxygen Delivery Method Room Air 03/25/24 13:00 03/25/24 14:00 03/25/24 14:06 Temperature 97.8 F Temperature Source Temporal Pulse Rate 61 60 Respiratory Rate 18 18 Respiratory Effort Normal Non-Labored Respiratory Depth Normal Respiratory Pattern Normal Blood Pressure 122/74 H 124/68 H Blood Pressure Mean 90 86 Blood Pressure Source Monitor Blood Pressure Position Semi-Fowlers Blood Pressure Location Right Arm Pulse Ox 95 95 Oxygen Delivery Method Room Air Room Air Room Air Weight Weight: 189 lb 6.033 oz Body Mass Index (BMI) 27.9 Physical Exam Narrative General: Alert, Oriented x3, Cooperative, No apparent distress HEENT: Atraumatic, PERRLA, EOMI, Normocephalic Oral: Moist Mucosa Neck: Supple, No JVD Lungs: Clear to auscultation, Normal air movement, No rhonchi, No wheeze, No rales Cardiovascular: Regular rate, Regular Rhythm, Normal S1, Normal S2, No murmurs Abdomen: Soft, Non Tender, Non-Distended, No Hepato-splenomegaly Extremities: No edema, Capillary Refill Less than 3 Seconds Skin: No rashes, No breakdown Musculoskeletal: No Tenderness to Palpation of Joints or Extremities Neurological: No focal neurological deficits, Motor Exam 5/5 strength throughout, Sensory exam intact to light touch and pain, tingling in his left upper and left lower extremity, NIH of 1 Psych/Mental Status: Normal Affect, Appropriate Results Lab / Micro Data 03/25/24 10:30 03/25/24 10:30 Labs: Laboratory Results - last 24 hr 03/25/24 10:30: WBC 3.8 L, RBC 4.54 L, Hgb 14.2, Hct 42.9, MCV 94.5 H, MCH 31.3, MCHC 33.1, RDW Std Deviation 45.7 H, RDW Coeff of Dee 13.1, Plt Count 190, MPV 9.6, Immature Gran % (Auto) 0.300, Neut % (Auto) 45.2 L, Lymph % (Auto) 43.8 H, [place] % (Auto) 9.9, Eos % (Auto) 0.0, Baso % (Auto) 0.8, Absolute Neuts (auto) 1.7 L, Absolute Lymphs (auto) 1.68, Nucleated RBC % 0, PT 14.5, INR 1.1, APTT 31.6, Sodium 140, Potassium 4.0, Chloride 104, Carbon Dioxide 29.0, Anion Gap 7, BUN 13, Creatinine 0.91, Estim Creat Clear Calc 81.59, Est GFR (MDRD) Af Amer 105, Est GFR (MDRD) Non-Af 87, BUN/Creatinine Ratio 14.3, Glucose 123 H, Calcium 9.5, Troponin I High Sens < 3 L, POC Glucose 97 Imaging Radiology Impression Brain CT 03/25/24 10:27 IMPRESSION: Chronic involutional changes of the brain. N.B. : The above Results were Read Back by Pj Ngo MD to Lonnie Caban DO, and understanding confirmed on 03/25/2024 10:54:36 (ET). Electronically Signed: Pj Ngo MD at 10:48 EDT , Chest X-Ray 03/25/24 10:27 IMPRESSION: Degenerative changes, as described above. No demonstrated acute cardiopulmonary process. Electronically Signed: Pj Ngo MD at 12:26 EDT , Head/Neck CTA 03/25/24 10:28 IMPRESSION: Normal CTA Head. No aneurysm or large vessel occlusion. There is plaque with mild, less than 50%, narrowing of the internal carotid arteries. No hemodynamically significant internal carotid artery stenosis. Electronically Signed: Pj Ngo MD at 11:23 EDT , Assessment & Plan Assessment/Plan (1) Tingling in extremities: PLAN: Plan 1. Left upper and left lower extremity tingling ? Unclear if this is stroke or another etiology ? Will proceed with an MRI ? Will continue with the CVA protocol 2. Crohn's ? Stable ? Continue with his home baseline medications 3. Anxiety/depression ? Stable ? Continue with Wellbutrin and trazodone DVT: SCDs 75 minutes was spent on direct patient care, including documentation as well as chart review and collaboration with colleagues Charges/Coding Visit Charges Inpatient E&M: 74584 Init Hosp L3
[2024-03-25] MEDS: Acetaminophen 325 MG Tablet 650 MG PO (18:13)
[2024-03-25] MEDS: traZODone 50 MG Tablet PO (21:33)
[2024-03-25] MEDS: buPROPion (SR) 150 MG Tablet.SA PO (21:34)
[2024-03-25] MEDS: Atorvastatin Calcium 80 MG Tablet PO (21:34)
[2024-03-25] MEDS: MESALAMINE 0.375 GM CAP.ER.24H 1.875 GM PO (21:34)
[2024-03-26 03:10] VITALS: O2SAT 95
[2024-03-26 03:12] VITALS: BP 101/70; PULSE 67; RESP 18; TEMP 36.4; O2SAT 95
[2024-03-26 03:30] VITALS: BMI 27.9
[2024-03-26 06:50] LABS: Absolute Lymphocyte Count 1.25 X10^3/uL (0.83-4.51); Absolute Neutrophil Count 4.3 X10^3/uL (2.0-7.7); Basophil# 0.03 X10^3/uL; Basophil% 0.5 % (0-1); Eosinophil# 0.01 X10^3/uL; Eosinophils% 0.2 % (0-5); Hematocrit 43.7 % (40-54); Hemoglobin 14.7 g/dL (13.0-16.5); Lymphocyte # 1.25 X10^3/ul (0.83-4.51); Lymphocyte % 20.8 % (19-41); Mean Corp Hgb Conc 33.6 g/dL (32-36); Mean Platelet Vol. 9.9 fl (6.2-12.0); Monocyte# 0.43 X10^3/uL; Monocyte% 7.2 % (0-10); NRBC Flagged by Analyzer 0 % (0-5); Neutrophil # 4.27 X10^3/uL (2.7-7.7); Neutrophil % 71.1 % (47-70); Platelet Count 197 K/mm3 (150-450); RBC Distribution Width SD 45.5 fl (35.1-43.9)
[2024-03-26 07:12] LABS: Anion Gap 3 (5-15); BUN 12 mg/dL (7-18); BUN/Creat Ratio 13.6 RATIO (10-20); Calcium,Total 9.4 mg/dL (8.5-10.1); Chloride 106 mmol/L (98-107); Cholesterol 145 mg/dL (200); Creatinine, Serum 0.88 mg/dL (0.70-1.30); EST Glomerular Filtration Rate 90 mL/min (>60); Est Glom Filt Rate - Afr Amer 109 mL/min (>60); Estimated Creatinine Clearance 78.77 ml/min; Glucose 120 mg/dL (74-106); High Density Lipoprotein 52 mg/dL; Potassium 4.1 mmol/L (3.5-5.1); Sodium Level 138 mmol/L (136-145); Triglycerides 77 mg/dL; Very Low Density Lipoprotein 15 mg/dL (5-40)
[2024-03-26 07:42] VITALS: O2SAT 94
[2024-03-26 08:17] VITALS: BP 117/70; PULSE 82; RESP 18; TEMP 36.9; O2SAT 95
[2024-03-26] MEDS: buPROPion (SR) 150 MG Tablet.SA PO (08:20)
[2024-03-26] MEDS: MESALAMINE 0.375 GM CAP.ER.24H 1.5 GM PO (08:20)
[2024-03-26] MEDS: Aspirin 81 MG TAB.CHEW PO (08:20)
--- NOTE | 2024-03-26 11:22 | CDU_ITS ---
Reason For Study: CVA Rt. Velocities/BP Lt. Velocities/BP Prox CCA 94.2/15.7 cm/sec. Prox CCA 124.1/20.5 cm/sec. Mid CCA 96.1/17.5 cm/sec. Mid CCA 100.8/17.9 cm/sec. Dist CCA 107.0/21.2 cm/sec. Dist CCA 104.2/21.3 cm/sec. Prox ICA 99.7/19.4 cm/sec. Prox ICA 76.1/18.5 cm/sec. Mid ICA 74.3/21.4 cm/sec. Mid ICA 85.1/21.2 cm/sec. Dist ICA 62.0/15.7 cm/sec. Dist ICA 119.8/30.3 cm/sec. Rt. ICA/CCA = 1.0. Lt. ICA/CCA = 1.2. Prox ECA 128.9/19.4 cm/sec. Prox ECA 108.9/13.9 cm/sec. Rt. Vert. 34.6/5.4 cm/sec. Lt. Vert. 41.1/7.4 cm/sec. Right Extracranial There is intimal thickening but no significant atherosclerotic plaque noted in the right common carotid artery. There is heterogeneous, irregular atherosclerotic plaque noted in the right internal carotid artery. There is intimal thickening but no significant atherosclerotic plaque noted in the right external carotid artery. Antegrade flow is noted in the right vertebral artery. Left Extracranial There is homogeneous, smooth atherosclerotic plaque noted in the left common carotid artery. There is heterogeneous, smooth atherosclerotic plaque noted in the left internal carotid artery. The left internal carotid artery is very tortuous. There is intimal thickening but no significant atherosclerotic plaque noted in the left external carotid artery. Antegrade flow is noted in the left vertebral artery. Procedure Carotid Duplex 19691. This is a Carotid Duplex examination using B-mode, color flow and specral Doppler. The exam was diagnostic. Exam performed portable in patient room. VL/Carotid Duplex Ultrasound Interpretation Summary Mild (<50%) stenosis right extracranial internal carotid. Mild (<50%) stenosis left extracranial internal carotid. Patent and antegrade vertebrals bilaterally. Ordering Physician: Bisi Grace Referring Physician: [facility] Performed By: Damon Engel RVT
--- NOTE | 2024-03-26 13:34 | CASEMGMT ---
Met with patietn to complete BRITO form. BRITO form explained to?patient who voiced understanding and signed form. Original form placed in pt?s chart and copy provided to?patient. Cathy Pineda, Discharge Planning Asst
[2024-03-26 13:56] VITALS: BMI 27.9
[2024-03-26 15:00] VITALS: BP 106/62; PULSE 92; RESP 18; TEMP 36.6; O2SAT 94
--- NOTE | 2024-03-26 16:27 | PCM.PROGNOTE ---
Subjective Subjective Patient seen and examined. Objective Data Objective Data Vital Signs: Vital Signs Temp Pulse Resp BP Pulse Ox O2 Del Method 97.9 F 92 18 106/62 94 Room Air 03/26/24 15:00 03/26/24 15:00 03/26/24 15:00 03/26/24 15:00 03/26/24 15:00 03/26/24 15:00 Oxygen Delivery Method Room Air Weight: 189 lb 6.033 oz Body Mass Index (BMI) 27.9 Intake & Output: Intake and Output for Last 24 Hours 03/24/24 03/25/24 03/26/24 23:59 23:59 23:59 Intake Total 240 / 240 780 / 780 Balance 240 / 240 780 / 780 Lab / Micro Data 03/26/24 05:35 03/26/24 05:35 Labs: Laboratory Results - last 24 hr 03/26/24 05:35: WBC 6.0, RBC 4.60, Hgb 14.7, Hct 43.7, MCV 95.0 H, MCH 32.0, MCHC 33.6, RDW Std Deviation 45.5 H, RDW Coeff of Dee 13.0, Plt Count 197, MPV 9.9, Immature Gran % (Auto) 0.200, Neut % (Auto) 71.1 H, Lymph % (Auto) 20.8, [place] % (Auto) 7.2, Eos % (Auto) 0.2, Baso % (Auto) 0.5, Absolute Neuts (auto) 4.3, Absolute Lymphs (auto) 1.25, Nucleated RBC % 0, Sodium 138, Potassium 4.1, Chloride 106, Carbon Dioxide 29.0, Anion Gap 3 L, BUN 12, Creatinine 0.88, Estim Creat Clear Calc 78.77, Est GFR (MDRD) Af Amer 109, Est GFR (MDRD) Non-Af 90, BUN/Creatinine Ratio 13.6, Glucose 120 H, Calcium 9.4, Triglycerides 77, Cholesterol 145, LDL Cholesterol 78, VLDL Cholesterol 15, HDL Cholesterol 52 Radiography Diagnostic Testing: Radiology Impression Brain MRI 03/25/24 13:31 IMPRESSION: Chronic microvascular ischemic changes. No evidence of acute intracranial pathology. Electronically Signed: Elliott Bernal DO at 16:37 EDT , Carotid Duplex 03/26/24 11:22 Interpretation Summary Mild (<50%) stenosis right extracranial internal carotid. Mild (<50%) stenosis left extracranial internal carotid. Patent and antegrade vertebrals bilaterally. Ordering Physician: Bisi Grace Referring Physician: KIRT Performed By: Damon Engel RVT
--- NOTE | 2024-03-26 16:33 | PCM.DC ---
Discharge Instructions Diet Discharge Diet: Low fat / Low cholesterol Activity Discharge Activity: Return to Normal Activity Weight Bearing Status: Weight bearing as tolerated Dressing / Incision Call your doctor if you observe: Fever of 101 or Higher, Shortness of breath, Dizziness, Swelling in the ankles and Chest pain Follow Up Care Test Results: Test results from this visit will be discussed in further detail at your follow-up appointment, if applicable. Discharge Plan Admission Admit Date/Time: 03/25/24 12:05 Primary Reason for Your Visit: vertigo, dizziness Attending Provider: Bisi Grace Primary Care Provider: [place] Consulting Providers: Dave Cheney Instructions Patient Instructions: Dizziness Fainting Causes, ED BPV Vertigo Discharge Orders/Prescriptions Prescriptions: New meclizine 25 mg tablet 25 mg PO TID PRN (Reason: dizziness) Qty: 30 2RF Continued loperamide [Imodium A-D] 2 mg tablet 4 mg PO BID PRN (Reason: diarrhea) mesalamine [Apriso] 0.375 gram capsule,extended release 24hr 1.5 g PO BID Patient Comments: takes 4 capsules in morning and 5caps in the evening Rx Instructions: orally twice a day; bupropion HCl 150 mg tablet extended release 24 hr 150 mg PO BID trazodone 50 mg tablet 50 mg PO QHS Referrals / Follow Up: [facility] [Primary Care Provider] - Within 1 Week Disposition Disposition (needs filled in before D/C Order can be placed): Home, Self Care
--- NOTE | 2024-03-26 16:34 | PCM.DC.SUM ---
Providers Date of Admission: 03/25/24 Date of Discharge: 03/26/24 Primary Care Physician: [facility] Reason For Visit: CVA R/O Diagnosis Discharge Diagnosis (1) Tingling in extremities: Status: Acute Code(s): R20.2 - Paresthesia of skin Medications at Discharge Home Medications bupropion HCl 150 mg 24 hr tablet, extended release 150 mg PO BID 01/31/24 loperamide 2 mg tablet (Imodium A-D) 4 mg PO BID PRN diarrhea 01/31/24 mesalamine 0.375 gram capsule,extended release 24 hr (Apriso) 1.5 g PO BID colitis 01/31/24 trazodone 50 mg tablet 50 mg PO QHS insomnia 01/31/24 meclizine 25 mg tablet 25 mg PO TID PRN dizziness #30 tabs 03/26/24 Hospital Course Operations None Procedures None Summary of Care Provided Minutes Spent on Discharge: 55 Hospital Course: Patient is a 74-year-old male with past medical history as outlined was admitted through the ED on 03/25/2024 with a complaint of left arm and leg tingling. He denied any weakness or numbness. His symptoms are started on the morning of admission when he was in the bathroom. He said he had been dealing with dizziness and lightheadedness for couple of months prior to admission and he had such an episode of lightheadedness was in the toilet but did not blackout. He had accompanying numbness and tingling in his left arm and leg. CT of the brain showed no acute intracranial pathology and CT of the head and neck showed no hemodynamically significant stenosis. He was admitted to rule out a stroke. [facility] teleneurology reviewed patient and did not think that he meds tenecteplase criteria. He had had an echocardiogram done in January 2024 when he presented with similar complaints and it showed EF of 60% and stage I diastolic dysfunction and pulmonary artery systolic pressure of 25 mmHg. Long-term event monitor was recommended at that time. Patient had an MRI done during this admission which was also negative for stroke. Carotid ultrasound showed less than 50% carotid stenosis bilaterally. Patient will be referred to cardiology to have a long-term event monitor implanted. In the interim we will discharge patient with a 30-day event monitor. Patient seen and examined prior to discharge. He had no complaints and had an uneventful night. His symptoms had not recurred. Review of systems was otherwise negative. Labs and vitals reviewed. Home meds reviewed and reconciled. He was given a prescription for p.o. meclizine. Physical Exam Const alert, oriented x3, no apparent distress and average body habitus General Appearance: cooperative, comfortable, well kempt and well developed Exam Limitations: no limitations HEENT normocephalic, head/scalp atraumatic, moist oral mucous membranes and oropharynx normal Mouth: oral and palatal mucosa normal Eyes PERRL, EOMs intact bilaterally and conjunctivae normal Neck no lymphadenopathy and supple Resp normal respiratory effort, no use of accessory muscles and clear to auscultation bilaterally Cardio regular rate, regular rhythm, S1 normal heart sound, S2 normal heart sound and no murmurs GI normal to inspection, nondistended, normoactive bowel sounds, soft to palpation and non-tender Extremity normal to inspection and full ROM Neuro oriented x3, CN's II-XII intact bilaterally, moves all extremities, no focal motor deficits and no sensory deficits noted Sensorium / Orientation: awake Motor Exam: strength 5/5 throughout Psych affect normal Weight / BMI Weight Weight: 189 lb 6.033 oz Body Mass Index (BMI) 27.9 ABG / Lab / Microbiology Data 03/26/24 05:35 03/26/24 05:35 Laboratory: Laboratory Results - last 24 hr 03/26/24 05:35: WBC 6.0, RBC 4.60, Hgb 14.7, Hct 43.7, MCV 95.0 H, MCH 32.0, MCHC 33.6, RDW Std Deviation 45.5 H, RDW Coeff of Dee 13.0, Plt Count 197, MPV 9.9, Immature Gran % (Auto) 0.200, Neut % (Auto) 71.1 H, Lymph % (Auto) 20.8, [place] % (Auto) 7.2, Eos % (Auto) 0.2, Baso % (Auto) 0.5, Absolute Neuts (auto) 4.3, Absolute Lymphs (auto) 1.25, Nucleated RBC % 0, Sodium 138, Potassium 4.1, Chloride 106, Carbon Dioxide 29.0, Anion Gap 3 L, BUN 12, Creatinine 0.88, Estim Creat Clear Calc 78.77, Est GFR (MDRD) Af Amer 109, Est GFR (MDRD) Non-Af 90, BUN/Creatinine Ratio 13.6, Glucose 120 H, Calcium 9.4, Triglycerides 77, Cholesterol 145, LDL Cholesterol 78, VLDL Cholesterol 15, HDL Cholesterol 52 Radiography Diagnostic Testing: Radiology Impression Brain MRI 03/25/24 13:31 IMPRESSION: Chronic microvascular ischemic changes. No evidence of acute intracranial pathology. Electronically Signed: Elliott BernalDO at 16:37 EDT , Carotid Duplex 03/26/24 11:22 Interpretation Summary Mild (<50%) stenosis right extracranial internal carotid. Mild (<50%) stenosis left extracranial internal carotid. Patent and antegrade vertebrals bilaterally. Ordering Physician: Bisi Grace Referring Physician: KIRT Performed By: Damon Engel RVT D/C Instructions Discharge Diet: Low fat / Low cholesterol Discharge Activity: Return to Normal Activity Weight Bearing Status: Weight bearing as tolerated Call your doctor if you observe: Fever of 101 or Higher, Shortness of breath, Dizziness, Swelling in the ankles and Chest pain Meaningful Use Info Meaningful Use Meaningful Use Diagnoses (Choose all that apply): None applicable Ischemic Stroke Statin Dosing Therapy Reference: STATIN DOSE THERAPY REFERENCE: * Patients > 75 years receive moderate or high dose statin therapy. * Patients 75 years or YOUNGER should receive HIGH intensity statin dose unless contraindicated. You will be required to document reason for non-treatment if statin daily dose does not meet guidelines. HIGH DOSE STATIN THERAPY DAILY Atorvastatin > than or = to 40 mg Rosuvastatin > than or = to 20 mg Amlodipine + Atorvastatin > than or = to 2.5/40 mg Ezetimibe + Simvastatin 10/80 mg Simvastatin 80mg Discharge Plan Admission Admit Date/Time: 03/25/24 12:05 Primary Reason for Your Visit: vertigo, dizziness Attending Provider: Bisi Grace Primary Care Provider: [facility],[place] Consulting Providers: Dave Cheney Instructions Patient Instructions: Dizziness Fainting Causes, ED BPV Vertigo Discharge Orders/Prescriptions Prescriptions: New meclizine 25 mg tablet 25 mg PO TID PRN (Reason: dizziness) Qty: 30 2RF Continued loperamide [Imodium A-D] 2 mg tablet 4 mg PO BID PRN (Reason: diarrhea) mesalamine [Apriso] 0.375 gram capsule,extended release 24hr 1.5 g PO BID Patient Comments: takes 4 capsules in morning and 5caps in the evening Rx Instructions: orally twice a day; bupropion HCl 150 mg tablet extended release 24 hr 150 mg PO BID trazodone 50 mg tablet 50 mg PO QHS Other Ambulatory Orders: 30 Day Event Recorder Preventi (Urgent) Timeframe: 1 Day Facility: [facility] - Location: Cardiovascular Services Ordered By: Dr. Bsii Grace Referrals / Follow Up[facility] [Primary Care Provider] - Within 1 Week Disposition Disposition (needs filled in before D/C Order can be placed): Home, Self Care Charges/Coding Visit Charges Inpatient E&M: 58435 Disch Hosp >30min
--- NOTE | 2024-03-27 16:23 | CASEMGMT ---
TASHI WHYTE called to follow up with patient regarding outpateint vestiular therapy. Per patient, he only has [facility] and will need approval from [facility] PCP. [facility] Patient had no further questions or concerns.
== END 2024-03-26 16:32 | disposition home or self-care (01) ==
LOC: ED 11:50 → PCU 12:41
PROVIDERS: Admitting Provider Family Medicine; Emergency Provider Emergency Medicine; Visit Provider Student in an Organized Health Care Education/Training Program
DX: R20.2 Paresthesia of skin (principal); K50.90 Crohn's disease, unspecified, without complications; I65.23 Occlusion and stenosis of bilateral carotid arteries; Z87.891 Personal history of nicotine dependence; R11.0 Nausea; D72.819 Decreased white blood cell count, unspecified; R42 Dizziness and giddiness; I44.0 Atrioventricular block, first degree; Z79.899 Other long term (current) drug therapy; F32.A Depression, unspecified; F41.9 Anxiety disorder, unspecified
CPT/HCPCS: 36415; 70450; 70496; 70498; 70551; 71045; 80048; 80061; 82962; 84484; 85025; 85610; 85730; 93005; 93880; 94762; 96374; 97162; 97166; 97802; 99221; 99285; Q9967; A4216; G0378

== ENCOUNTER 2025-02-09 09:37 | Emergency (ER) | payer OTHER, SELFPAY ==
[2025-02-09 09:38] VITALS: BP 130/77; PULSE 82; RESP 18; TEMP 36.7; O2SAT 98; BMI 28.6
--- NOTE | 2025-02-09 10:00 | EKG12_ITS ---
Test Reason : DIZZINESS Blood Pressure : */* mmHG Vent. Rate : 81 BPM Atrial Rate : 81 BPM P-R Int : 172 ms QRS Dur : 94 ms QT Int : 376 ms P-R-T Axes : 33 28 50 degrees QTcB Int : 436 ms Normal sinus rhythm with sinus arrhythmia Normal ECG When compared with ECG of 25-Mar-2024 11:10, OK interval has decreased Confirmed by Toñito Kang ([id number]), editorial manager FLOWER MALIK ([id number]) on 02/14/2025 10:05:49 AM Referred By: NATHANIEL Confirmed By: Toñito Kang
--- NOTE | 2025-02-09 10:16 | EX.ED.DYSGE1 ---
HPI History of Present Illness Chief Complaint: Dizziness Informant: patient and spouse/S.O. Onset/Context/Timing Current Severity: Gone Maximum Severity: Mild Narrative Narrative: 74-year-old male history of Crohns, vertigo and sleep apnea. States for the last month or so he has had episodes of lightheadedness primarily with position change. Typically worse in the morning and gets better throughout the day. He denies any falls. Said this is not like his vertigo. There is no room spinning. He has no new changes with his vision or his balance or his strength. No trouble speaking. He denies any medication changes recently. He denies any headaches. Or head trauma. He denies any vomiting, diarrhea or fever. No dysuria. Denies any recent illness. Prior similar symptoms: Yes Recent Illness/Hospitalization: No PFSH PFSH Medical History Vertigo Hx of Crohn's disease Cholecystectomy planned Acute Crohn's disease Home Medications ?Medication ?Instructions ?Recorded ?Last Taken ?Type bupropion HCl 150 mg 24 hr tablet, 150 mg PO BID 01/31/24 01/31/24 History extended release loperamide 2 mg tablet (Imodium 4 mg PO BID PRN diarrhea 01/31/24 01/31/24 History A-D) mesalamine 0.375 gram 1.5 g PO BID colitis 01/31/24 01/31/24 History capsule,extended release 24 hr (Apriso) trazodone 50 mg tablet 50 mg PO QHS insomnia 01/31/24 01/30/24 History meclizine 25 mg tablet 25 mg PO TID PRN dizziness #30 tabs 03/26/24 Unknown Rx Allergy/AdvReac Type Severity Reaction Status Date / Time No Known Allergies Allergy Verified 02/09/25 09:38 Family History Other Heart disease Surgical History Hx of cholecystectomy History of back surgery Social History Smoking Status: Former smoker ROS ROS ED ROS Narrative Lightheadedness. Denies recent illness. Constitutional Constitutional ED: Denies chills or fever(s) Eyes Eyes: Denies blurry vision ENT ENT ED: Denies ear pain Cardiovascular Cardiovascular: Denies chest pain Respiratory/Chest Respiratory/Chest: Denies cough or dyspnea Gastrointestinal Gastrointestinal: Denies abdominal pain Genitourinary Genitourinary ED: Denies dysuria or hematuria Musculoskeletal Musculoskeletal: Denies arthralgias Integumentary Denies abscess or Abrasions Neurologic Neurologic: Denies headache(s) Psychiatric Psychiatric: Denies anxiety or depression Endocrine Endocrinology: Denies cold intolerance Hematologic/Lymphatic Hematologic/Lymphatic: Reports none Allergic/Immunologic Allergic/Immunologic ED: Denies mouth swelling, tongue swelling or urticaria EXAM Physical Exam Narrative Exam Narrative: 74 male no acute distress sitting upright in bed. at bedside. Vital signs are stable and afebrile. H EENT exam pupils round reactive light. No facial droop. Normal speech. No trauma. Nontender. Neck nontender. Lungs clear equal and symmetrical bilaterally. Heart regular rate and rhythm rate about 80 no murmur. Chest wall ribs nontender. Abdomen soft nontender. No peritoneal signs. Moving all 4 extremities. 5 out of 5 mrp controller strength. Dorsi plantarflexion intact. Back nontender. Neurologically is awake and alert. Answering questions following exams. NIH 0. No drift. Fingertip to nose within normal limits. Normal motor strength and sensation. Patient is a very benign exam. Const Vital Signs: 02/09/25 09:38 02/09/25 10:27 02/09/25 11:38 Temperature 98.1 F Temperature Source Temporal Pulse Rate 82 75 Pulse Rate [Lying] 83 Pulse Rate [Sitting (for 1 minute prior to obtaining)] 83 Pulse Rate [Standing (for 1 minute prior to obtaining)] 90 Respiratory Rate 18 Blood Pressure 130/77 H 129/64 H Blood Pressure [Lying] 126/66 H Blood Pressure [Sitting (for 1 minute prior to obtaining)] 135/77 H Blood Pressure [Standing (for 1 minute prior to obtaining)] 130/71 H Blood Pressure Mean 94 85 Blood Pressure Mean [Lying] 86 Blood Pressure Mean [Sitting (for 1 minute prior to obtaining)] 96 Blood Pressure Mean [Standing (for 1 minute prior to obtaining)] 90 Pulse Ox 98 93 Oxygen Delivery Method Room Air Room Air 02/09/25 12:58 Temperature Temperature Source Pulse Rate 84 Pulse Rate [Lying] Pulse Rate [Sitting (for 1 minute prior to obtaining)] Pulse Rate [Standing (for 1 minute prior to obtaining)] Respiratory Rate 19 H Blood Pressure 114/69 Blood Pressure [Lying] Blood Pressure [Sitting (for 1 minute prior to obtaining)] Blood Pressure [Standing (for 1 minute prior to obtaining)] Blood Pressure Mean 84 Blood Pressure Mean [Lying] Blood Pressure Mean [Sitting (for 1 minute prior to obtaining)] Blood Pressure Mean [Standing (for 1 minute prior to obtaining)] Pulse Ox 94 Oxygen Delivery Method Room Air Positive well nourished and well developed; Negative for cachectic, contractures or unkempt General Appearance ED: well developed and NAD; Negative for unkempt, cachectic, contractures, cyanotic, diaphoretic or pallor Nutritional Appearance: Negative for cachectic HEENT Reports moist mucous membranes Negative for trauma or tenderness Eyes PERRL and EOMs intact bilaterally General Eye ED: Negative for pale conjunctiva, scleral icterus or other Neck no lymphadenopathy, supple and no JVD General: Negative for tenderness Lymph Lymphatic: Negative for other Chest Wall inspection of chest normal and palpation of chest normal Resp normal respiratory effort and clear to auscultation bilaterally Effort and Inspection: Negative for retractions Auscultation: Negative for rales, rhonchi, wheezes or diminished lung sounds Cardio regular rate, regular rhythm, S1 normal heart sound, S2 normal heart sound and no murmurs Rate: Negative for bradycardia or tachycardic GI normal to inspection, nondistended, normoactive bowel sounds, non-tender, non-distended and no masses Auscultation: normoactive bowel sounds Palpation: soft; Negative for tender, guarding or rebound tenderness present Back/Spine no CVA tenderness General Back: Negative for CVA tenderness Cervical Spine: Negative for cervical spine tenderness Thoracic Spine / Upper Back: Negative for thoracic spinal tenderness Lumbar Spine / Lower Back: Negative for lumbar spinal tenderness Extremity normal to inspection General Extremety ED: Negative for edema or tenderness General Extremity: Negative for edema Neuro oriented x3 and CN's II-XII intact bilaterally Sensorium / Orientation: alert; Negative for orientation impaired or lethargic Motor Exam: strength 5/5 throughout Psych mental status grossly normal Appearance: Negative for unkempt Attitude: No agitated Mood & Affect: Negative for depressed, anxious or tearful Skin no rashes or lesions noted, no wounds and skin turgor normal General Skin Exam: elasticity normal; Negative for jaundice or pallor Lesions: No lesion noted Rashes: No rashes noted Trauma: Negative for abrasion Wounds: Negative for wounds noted MDM MDM MDM Narrative Medical decision making narrative: 74-year-old male with lightheadedness with positional changes may be orthostatic hypotension. He is a very benign exam. Very normal exam and normal neurologic exam. Clinically this is not vertigo. Screening labs will be obtained for things like anemia or dehydration orthostatic vital signs. He had an EKG done already today and it was normal. I do not think at this time he needs imaging of his brain. Repeat exam patient is doing well. He and I discussed his test results. Other than his abnormal blood sugar 273 and he does have diabetes running in his family his labs are otherwise unremarkable. [facility] to determine if he is prediabetic or becoming diabetic. His repeat exam is normal his repeat neurologic exam at 130 is normal. He is comfortable being discharged home with outpatient follow-up. History & Record Review Discussion w/independent historian: Patient and Family Additional record(s) reviewed:: Prior inpatient record, Prior outpatient record, Prior ED visit and Prior labs Lab Data Attestation: I reviewed the patient's lab results. Lab results narrative: CBC shows a white count 3.5. H&H of 14 and 40. Platelets 181. Orthostatic vital signs were negative per nursing. Stated blood pressure was normal. Chemistries were normal. Gap 10. BUN and creatinine are 14 and 1. Glucose 273. Labs: Laboratory Results - last 24 hr 02/09/25 10:20 WBC 3.5 L RBC 4.38 L Hgb 14.1 Hct 40.6 MCV 92.7 MCH 32.2 H MCHC 34.7 RDW Std Deviation 44.7 H RDW Coeff of Dee 13.1 Plt Count 181 MPV 9.4 Immature Gran % (Auto) 0.300 Neut % (Auto) 51.8 Lymph % (Auto) 38.9 [place] % (Auto) 8.1 Eos % (Auto) 0.0 Baso % (Auto) 0.9 Absolute Neuts (auto) 1.8 L Absolute Lymphs (auto) 1.35 Nucleated RBC % 0 Sodium 135 Potassium 4.7 Chloride 100 Carbon Dioxide 24.4 Anion Gap 10 BUN 14 Creatinine 1.03 Estim Creat Clear Calc 68.03 Est GFR (MDRD) Non-Af 76 BUN/Creatinine Ratio 13.2 Glucose 273 H Calcium 9.0 Rhythm Strip Rhythm Strip: Sinus Rhythm Rate: 81 Ectopy: None EKG Initial EKG: Attestation: I personally reviewed and interpreted this EKG as follows: Interpretation: Sinus Rhythm and No Acute Injury Pattern Comments: Normal sinus rhythm rate 81 no acute signs of ID or ischemia. No dysrhythmia. Unchanged from prior EKG from a year ago. Discharge Plan Triage Chief Complaint: Dizziness ED Provider: Dominic Webster Dx/Rx/DC Orders Clinical Impression: Dizziness, Acute hyperglycemia Instructions: High Blood Sugar (Hyperglycemia), ED Dizziness, Uncertain Cause Prescriptions: No Action loperamide [Imodium A-D] 2 mg tablet 4 mg PO BID PRN (Reason: diarrhea) mesalamine [Apriso] 0.375 gram capsule,extended release 24hr 1.5 g PO BID Patient Comments: takes 4 capsules in morning and 5caps in the evening Rx Instructions: orally twice a day; bupropion HCl 150 mg tablet extended release 24 hr 150 mg PO BID trazodone 50 mg tablet 50 mg PO QHS meclizine 25 mg tablet 25 mg PO TID PRN (Reason: dizziness) Qty: 30 2RF Primary Care Provider: [place] Referrals: Jaron Shah MD [Med Staff - [facility]] - As soon as possible [facility] [Primary Care Provider] - As soon as possible Activity Restrictions/Additional Instructions: [facility] The only abnormal test you had today was your elevated blood sugar 273. This may be the cause of your symptoms. It also may not. They need to do the further testing to determine if you are prediabetic or becoming diabetic. There is a test they can run called a hemoglobin A1c. You could also follow-up with a local physician. Print Language: Citizen Of [place] Disposition Disposition: Home, Self Care
[2025-02-09 10:27] VITALS: BP 126/66; BP 130/71; BP 135/77; PULSE 83; PULSE 90
[2025-02-09 10:27] LABS: Absolute Lymphocyte Count 1.35 X10^3/uL (0.83-4.51); Absolute Neutrophil Count 1.8 X10^3/uL (2.0-7.7); Basophil# 0.03 X10^3/uL; Basophil% 0.9 % (0-1); Hematocrit 40.6 % (40-54); Hemoglobin 14.1 g/dL (13.0-16.5); Lymphocyte # 1.35 X10^3/ul (0.83-4.51); Lymphocyte % 38.9 % (19-41); Mean Corp Hgb Conc 34.7 g/dL (32-36); Mean Corpuscular Hgb 32.2 pg (27.0-32.0); Mean Corpuscular Volume 92.7 fL (80-94); Mean Platelet Vol. 9.4 fl (6.2-12.0); Monocyte# 0.28 X10^3/uL; Monocyte% 8.1 % (0-10); NRBC Flagged by Analyzer 0 % (0-5); Neutrophil % 51.8 % (47-70); Platelet Count 181 K/mm3 (150-450); RBC Distribution Width CV 13.1 % (11.6-14.6); RBC Distribution Width SD 44.7 fl (35.1-43.9); Red Blood Count 4.38 M/mm3 (4.6-6.2); White Blood Count 3.5 K/mm3 (4.4-11.0)
[2025-02-09 11:38] VITALS: BP 129/64; PULSE 75; O2SAT 93
[2025-02-09 12:58] VITALS: BP 114/69; PULSE 84; RESP 19; O2SAT 94
[2025-02-09 13:09] LABS: Anion Gap 10 (5-15); BUN 14 mg/dL (4-19); BUN/Creat Ratio 13.2 RATIO (10-20); Carbon Dioxide 24.4 mmol/L (21.0-32.0); Chloride 100 mmol/L (98-108); Creatinine, Serum 1.03 mg/dL (0.70-1.20); EST Glomerular Filtration Rate 76 (>60); Estimated Creatinine Clearance 68.03 ml/min (50-250); Glucose 273 mg/dL (70-99); Potassium 4.7 mmol/L (3.3-5.1); Sodium Level 135 mmol/L (133-145)
[2025-02-09 13:34] VITALS: BP 114/75; PULSE 70; RESP 17; TEMP 36.7; O2SAT 94
== END 2025-02-09 13:44 | disposition home or self-care (01) ==
PROVIDERS: Emergency Provider Emergency Medicine; Visit Provider Emergency Medicine
DX: R42 Dizziness and giddiness (principal); R73.9 Hyperglycemia, unspecified; Z79.899 Other long term (current) drug therapy; Z87.19 Personal history of other diseases of the digestive system; Z87.891 Personal history of nicotine dependence; Z83.3 Family history of diabetes mellitus
CPT/HCPCS: 80048; 85025; 93005; 99284; A4216